=== PATIENT | female | born 1960 | race Caucasian/White ===

== ENCOUNTER 2019-06-11 20:42 | Emergency (ER) | payer BC, SELFPAY ==
[2019-06-11 20:58] VITALS: BP 127/81; PULSE 66; RESP 20; TEMP 36.6; O2SAT 99
--- NOTE | 2019-06-11 21:45 | PC.NURSE ---
PT STATES SHE IS LEAVING. STATES SHE PLANS TO COME BACK TOMORROW. DISCUSSED RISKS OF LEAVING BEFORE BEING SEEN. VERBALIZES UNDERSTANDING.
== END 2019-06-11 21:45 | disposition left against medical advice (07) ==
PROVIDERS: PCP Family Medicine
DX: M54.2 Cervicalgia (principal)
CPT/HCPCS: 99199

== ENCOUNTER 2019-10-06 16:37 | Outpatient (CLI) | payer OTHER, BC, SELFPAY ==
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
== END 2019-10-06 16:38 | disposition home or self-care (01) ==
PROVIDERS: PCP Family Medicine; Visit Provider Physician Assistant
DX: M54.2 Cervicalgia (principal); M25.512 Pain in left shoulder; V89.2XXA Person injured in unspecified motor-vehicle accident, traffic, initial encounter; M19.012 Primary osteoarthritis, left shoulder; M47.816 Spondylosis without myelopathy or radiculopathy, lumbar region; M47.815 Spondylosis without myelopathy or radiculopathy, thoracolumbar region; M47.812 Spondylosis without myelopathy or radiculopathy, cervical region
CPT/HCPCS: 72040; 72070; 72100; 73030

== ENCOUNTER 2019-11-08 17:00 | Outpatient (CLI) | payer OTHER, BC, SELFPAY ==
--- NOTE | ~2019-11-08 | XR_ITS ---
XR wrist LT 2V 11/08/2019 17:21 Indication: Left wrist pain. Lump in the wrist. Procedure: 2 views left wrist Comparison: No prior studies for comparison. Findings: Mild osteoarthritis of the first CMC joint. No fracture, subluxation or dislocation. No foc al soft tissue abnormality. No foreign bodies. Impression: 1: Mild osteoarthritis of the first CMC joint. Reviewed, dictated and finalized at location A. Impression: 1: Mild osteoarthritis of the first CMC joint.
== END 2019-11-08 17:01 | disposition home or self-care (01) ==
PROVIDERS: PCP Family Medicine; Visit Provider Physician Assistant
DX: M19.032 Primary osteoarthritis, left wrist (principal)
CPT/HCPCS: 73100

== ENCOUNTER 2020-05-16 19:23 | Emergency (ER) | payer BC, SELFPAY ==
--- NOTE | ~2020-05-16 | XR_ITS ---
EXAMINATION: XR foot LT min 3V DATE: 05/16/2020 19:51 INDICATION: Lateral left foot pain TECHNIQUE: Dorsoplantar, two oblique and lateral views of the left foot were obtained. COMPARISON: None. FINDINGS: Mild hallux valgus. Alignment is otherwise normal. No fracture. Mild reticular osteoarthritis at the first metatarsophalangeal and a few tarsal metatarsal and interphalangeal joints. Indolent appearing lytic lesion with thin sclerotic margins abutting the base of the first metatarsal likely degenerativ e subchondral cysts. Additional lytic lesion with thin sclerotic margins at the medial head of the fi rst metatarsal which could represent cystic change related to bunion or potentially an erosion in the setting of gout. Benign bone island at the head of the second metatarsal. Small Achilles and plantar calcaneal these joints. Additional small enthesophytes at the lateral malleolus. Mild soft tissue sw elling along the dorsal lateral aspect of the midfoot. IMPRESSION: 1. Incidental findings as detailed above. No acute osseous abnormality. Reviewed, dictated and finalized at location A. SITE ADMINISTRATOR
[2020-05-16 19:27] VITALS: BP 128/79; PULSE 66; RESP 18; TEMP 36.9; O2SAT 99
--- NOTE | 2020-05-16 20:38 | ED.GENADULT ---
HPI - General Adult General Chief complaint: Extremity Problem,Nontraumatic Stated complaint: left foot pain Time Seen by Provider: 05/16/20 19:49 Source: patient Mode of arrival: ambulatory Limitations: no limitations History of Present Illness HPI narrative: Patient presents with chief complaint of right dorsal foot pain that began this afternoon. Patient denies any inversion or eversion of her ankle or falls. Patient denies any other symptoms or injuries. Related Data Home Medications Medication Instructions Recorded Confirmed acetaminophen 650 mg 650 mg PO Q12H 10/06/19 10/07/19 tablet,extended release ergocalciferol (vitamin D2) 1,250 1,250 mcg PO WEEKLY 10/06/19 10/07/19 mcg (50,000 unit) capsule levothyroxine 100 mcg capsule 100 mcg PO DAILY 10/06/19 10/07/19 estradiol [EstroGel] 05/16/20 Allergies Allergy/AdvReac Type Severity Reaction Status Date / Time hydrocodone Allergy Severe Anaphylactic Verified 05/16/20 19:34 Shock oxycodone Allergy Severe Anaphylactic Verified 05/16/20 19:34 Shock Penicillins Allergy Severe Anaphylactic Verified 05/16/20 19:34 Shock Review of Systems Review of Systems: Narrative: CONSTITUTIONAL: Denies fever, chills, or sweats. EYES: Denies visual changes, redness, or discharge. ENT: Denies rhinorrhea, congestion, sore throat, or otalgia. CARDIOVASCULAR: Denies chest pain, palpitations, or edema. RESPIRATORY: Denies cough or dyspnea. GASTROINTESTINAL: Denies abdominal pain, nausea, vomiting, or diarrhea. GENITOURINARY: Denies dysuria or hematuria. SKIN: Denies rash or itching. MUSCULOSKELETAL: Reports right foot pain denies back pain, joint pain, or myalgia. NEUROLOGIC: Denies headache, numbness, dizziness, or weakness. PSYCHIATRIC: Denies anxiety or depression. [facility] Past Medical History Medical History (Updated 05/16/20 @ 20:46 by Mary Gonzales PA-C) Left wrist pain Family History Family History (Updated 12/30/13 @ 07:13 by DOCTOR UNKNOWN) Mother Family history of Alzheimer's disease Social History Social History Smoking status: Never smoker Alcohol intake: never Gender identity (if verbalized by the patient): Female Exam Narrative: Exam Narrative: GENERAL: Well-appearing, well-nourished, and in no acute distress. HEAD: Normocephalic, atraumatic. EYES: PERRLA and EOMI. NECK: Supple. No adenopathy or masses. CHEST: Clear to auscultation. No respiratory distress. No wheezes rales or rhonchi HEART: Regular rate and rhythm. EXTREMITIES: Diffuse tenderness over the dorsal aspect of the patient's right foot. Swelling erythema or ecchymosis not appreciated. Normal range of motion but patient reports pain with plantar and dorsiflexion. No edema. SKIN: Warm, dry, no rash. NEURO: No focal deficits. Alert and oriented x3. PSYCH: Normal mood and affect. Course Vital Signs Vital signs: Vital Signs Temperature 98.5 F 05/16/20 19:27 Pulse Rate 66 05/16/20 19:27 Respiratory Rate 18 05/16/20 19:27 Blood Pressure 128/79 05/16/20 19:27 Pulse Oximetry 99 05/16/20 19:27 Temperature 98.5 F 05/16/20 19:27 Pulse Rate 66 05/16/20 19:27 Respiratory Rate 18 05/16/20 19:27 Blood Pressure 128/79 05/16/20 19:27 Pulse Oximetry 99 05/16/20 19:27 Medical Decision Making MDM Narrative Medical decision making narrative: Patient's right foot x-ray was negative. Patient instructed that her symptoms seem to be tender or ligament involved. Patient will receive Jean-Paul wrap, instructions to RICE, and follow-up with her primary care provider. Vital Signs Vital Signs: Vital Signs Temperature 98.5 F 05/16/20 19:27 Pulse Rate 66 05/16/20 19:27 Respiratory Rate 18 05/16/20 19:27 Blood Pressure 128/79 05/16/20 19:27 Pulse Oximetry 99 05/16/20 19:27 Temperature 98.5 F 05/16/20 19:27 Pulse Rate 66 05/16/20 19:27 Respiratory Rate 18 05/16/20 19:27 Blood Pressure 128/79 05/16/20 19:27
== END 2020-05-16 21:11 | disposition home or self-care (01) ==
PROVIDERS: Emergency Provider Emergency Medicine; PCP Family Medicine
DX: S96.912A Strain of unspecified muscle and tendon at ankle and foot level, left foot, initial encounter (principal); X58.XXXA Exposure to other specified factors, initial encounter
CPT/HCPCS: 73630; 99283

== ENCOUNTER → 2020-07-14 09:36 | Outpatient (CLI) | payer BC, SELFPAY ==
[2020-07-14 19:00] LABS: SARS-CoV-2 RNA PCR Negative
== END ==
PROVIDERS: PCP Family Medicine; Visit Provider Nurse Practitioner Family
DX: Z20.822 Contact with and (suspected) exposure to COVID-19 (principal)
CPT/HCPCS: C9803; U0003; U0005

== ENCOUNTER 2021-07-23 06:25 | Emergency (ER) | payer BC, SELFPAY ==
[2021-07-23] VITALS (7 sets, daily range): BP systolic 105–128; BP diastolic 79–96; PULSE 50–71; RESP 13–23; TEMP 36.9; O2SAT 100
--- NOTE | ~2021-07-23 | CT_ITS ---
EXAMINATION: CTA chest PE protocol DATE: 07/23/2021 07:37 CDT INDICATION: Left lower extremity edema with chest pain TECHNIQUE: Computed tomographic angiography (CTA) of the chest was performed with 100 mL Omnipaque-35 0 intravenous contrast. The dose-length product was 706.33 mGy-cm. Maximum intensity projection 3D-re constructions of the aorta and other arteries were constructed by the technologist on a separate work station. COMPARISON: Chest x-ray dated 07/23/2021. FINDINGS: Study is technically adequate without evidence for pulmonary embolism. No evidence for aort ic aneurysm or dissection. Small hiatal hernia. No significant pleural or pericardial effusion. No th oracic lymphadenopathy. The upper abdomen is unremarkable. There are patchy groundglass opacities thr oughout both lungs, compatible with pneumonia. No endobronchial lesions. No pneumothorax. Mild thorac ic spondylosis. There is dextroscoliosis. IMPRESSION: 1. Patchy bilateral groundglass opacities throughout both lungs, compatible with pneumonia. Reviewed, dictated and finalized at location A. IMPRESSION: 1. Patchy bilateral groundglass opacities throughout both lungs, compatible wit h pneumonia.
--- NOTE | ~2021-07-23 | US_ITS ---
EXAMINATION:US venous doppler LE LT INDICATION:Leg swelling TECHNIQUE: Multiple grayscale, color flow and Doppler images of the right and left lower extremity de ep venous systems were obtained and reviewed. COMPARISON:No prior studies for comparison. FINDINGS: The common femoral, superficial femoral and popliteal veins demonstrate normal respiratory variation, augmentation and compressibility. Color flow is also seen within the posterior tibial, pe roneal, greater saphenous and profunda veins. IMPRESSION: 1: No lower extremity deep venous thrombosis. Reviewed, dictated and finalized at location A.
--- NOTE | ~2021-07-23 | XR_ITS ---
EXAMINATION: XR chest 2V 07/23/2021 07:09 INDICATION: Left lower extremity edema with chest pain. PROCEDURE: 2 view chest COMPARISON: 10/04/2018 FINDINGS: The lungs are clear. The cardiomediastinal silhouette is within normal limits. There are no pleural effusions. There is no pneumothorax suspected. IMPRESSION: 1: NO ACUTE CARDIOPULMONARY DISEASE. Reviewed, dictated and finalized at location A.
--- NOTE | 2021-07-23 06:45 | ECG_ITS ---
Measurements Intervals [place] Rate: 59 P: 24 KS: 169 QRS: -1 QRSD: 81 T: 25 QT: 451 QTc: 447 Interpretive Statements SINUS BRADYCARDIA OTHERWISE NORMAL ECG NO PREVIOUS ECG AVAILABLE FOR COMPARISON Electronically Signed On 07-23-2021 9:06:31 CDT by Timothy Cordoba M.D.
[2021-07-23 06:57] LABS: Basophils Absolute Auto 0.1 K/mm3 (0.0-0.1); Basophils Percent Auto 1.3 % (0.2-1.2); Eosinophils Absolute Auto 0.3 K/mm3 (0-0.3); Eosinophils Percent Auto 4.2 % (0-4.4); Hematocrit 43.3 % (37.0-47.0); Hemoglobin 14.8 g/dL (12.0-15.0); Immature Granulocyte Absolute 0.02 K/mm3 (0.00-0.031); Immature Granulocyte Percent A 0.3 % (0-0.5); Lymphocytes Percent Auto 30.6 % (18.3-44.2); Mean Corpuscular HGB Conc 34.2 g/dl (32-36); Mean Corpuscular Hemoglobin 32.9 pg (26-34); Mean Corpuscular Volume 96.2 fl (80-100); Mean Platelet Volume 9.5 fl (7.4-10.4); Monocytes Absolute Auto 0.4 K/mm3 (0.1-0.6); Monocytes Percent Auto 5.2 % (2.6-8.5); Neutrophils Percent Auto 58.4 % (45.5-73.1); Platelet Count Result 215 k/mm3 (150-375); Red Cell Distribution Width 12.5 % (11.5-14.5); White Blood Count 6.9 K/mm3 (4.5-10.0)
--- NOTE | 2021-07-23 07:01 | ED.LOWEXIN ---
HPI - Extremity Injury (Lower) General Chief Complaint: Extremity Injury, Lower Stated Complaint: left foot pain and swelling x2 days Time Seen by Provider: 07/23/21 06:53 Source: patient History of Present Illness HPI Narrative: Patient does with left lower extremity edema first she has had symptoms on and off for the past weeks this episode has been lasting for the past 3 days she feels like her leg is swelling up and can pop . She also reports a history of a DVT when she was on estrogen therapies. she denies any recent hospitalizations or surgeries. She does also reports some chest pain and shortness of breath over a similar timeframe. She denies any vomiting, diaphoresis. There are no clear aggravating or alleviating factors with her chest pain. It is a knot sensation no radiation. Related Data Home Medications Medication Instructions Recorded Confirmed acetaminophen 650 mg 650 mg PO Q12H 10/06/19 10/07/19 tablet,extended release ergocalciferol (vitamin D2) 1,250 1,250 mcg PO WEEKLY 10/06/19 10/07/19 mcg (50,000 unit) capsule levothyroxine 100 mcg capsule 100 mcg PO DAILY 10/06/19 10/07/19 estradiol [EstroGel] 05/16/20 Allergies Allergy/AdvReac Type Severity Reaction Status Date / Time hydrocodone Allergy Severe Anaphylactic Verified 07/23/21 06:41 Shock oxycodone Allergy Severe Anaphylactic Verified 07/23/21 06:41 Shock Penicillins Allergy Severe Anaphylactic Verified 07/23/21 06:41 Shock Review of Systems Review of Systems: CONSTITUTIONAL: Denies fever, chills, or sweats. EYES: Denies visual changes, redness, or discharge. ENT: Denies rhinorrhea, congestion, sore throat, or otalgia. CARDIOVASCULAR: Denies chest pain, palpitations, or edema. RESPIRATORY: Denies cough or dyspnea. GASTROINTESTINAL: Denies abdominal pain, nausea, vomiting, or diarrhea. GENITOURINARY: Denies dysuria or hematuria. SKIN: Denies rash or itching. MUSCULOSKELETAL: Denies back pain, joint pain, or myalgia. NEUROLOGIC: Denies headache, numbness, dizziness, or weakness. PSYCHIATRIC: Denies anxiety or depression. All systems reviewed & are unremarkable except as noted in HPI and below PMFSH Past Medical History Medical History Left wrist pain Family History Family History Mother Family history of Alzheimer's disease Social History Social History Smoking status: Never smoker Alcohol intake: never Gender identity (if verbalized by the patient): Female Exam Narrative: GENERAL: Well-appearing, well-nourished, and in no acute distress. HEAD: Normocephalic, atraumatic. EYES: PERRLA and EOMI. ENT: Nares clear, no rhinorrhea or epistaxis. Mucous membranes moist. NECK: Supple. No masses. No JVD CHEST: Clear to auscultation. No respiratory distress. No wheezes rales or rhonchi HEART: Regular rate and rhythm. No murmur heard. Normal peripheral pulses. ABDOMEN: Soft, nontender, nondistended, normal active bowel sounds. EXTREMITIES: Normal range of motion. 2+ pitting edema in the left lower extremity SKIN: Warm, dry, no rash. NEURO: No focal deficits. Alert and oriented x3. PSYCH: Normal mood and affect. Course Reevaluation(s) Reevaluation #1: Patient rest, the results and plan reviewed with patient. Patient comfortable outpatient plan Date: 07/23/21 Time: 08:03 Vital Signs Vital signs: Vital Signs Temperature 36.9 C 07/23/21 06:35 Pulse Rate 71 07/23/21 06:35 Respiratory Rate 20 07/23/21 06:35 Blood Pressure 128/79 07/23/21 06:35 Pulse Oximetry 100 07/23/21 06:35 Temperature 36.9 C 07/23/21 06:35 Pulse Rate 50 L 07/23/21 08:32 Respiratory Rate 18 07/23/21 08:32 Blood Pressure 105/79 07/23/21 08:32 Pulse Oximetry 100 07/23/21 08:32 MDM - Extremity Injury (Lower) MDM Narrative Medical decision
[2021-07-23 07:07] LABS: Alanine Aminotransferase 23 U/L (4-35); Albumin Level 3.8 g/dL (3.5-5.1); Alkaline Phosphatase 87 U/L (38-126); Anion Gap 4 mmol/L (8-16); Aspartate Amino Transferase 31 U/L (14-36); Blood Urea Nitrogen 9 mg/dL (7-17); Calcium 8.3 mg/dL (8.4-10.2); Carbon Dioxide 25 mmol/L (22-30); Chloride 110 mmol/L (98-107); Estimated CRCL calculation 73 ml/min; Estimated Glomerular Filt Rate 57; Glucose 108 mg/dL (65-110); Potassium 3.6 mmol/L (3.4-5.0); Sodium 139 mmol/L (137-145)
[2021-07-23 07:15] LABS: Prothrombin Time 12.9 Seconds (11.1-14.7)
[2021-07-23 07:16] LABS: Partial Thromboplastin Time 25.7 SECONDS (22.3-36.8)
[2021-07-23 07:21] LABS: Troponin I < 0.012 ng/mL (0.000-0.034)
--- NOTE | 2021-07-23 07:22 | PC.NURSE ---
Patient report received from DIMITRIS Carbone. All questions answered and care of patient assumed.
--- NOTE | 2021-07-23 07:24 | PC.NURSE ---
Patient off unit to Radiology for US.
--- NOTE | 2021-07-23 07:57 | PC.NURSE ---
Dr. Mendoza at bedside to assess pt.
[2021-07-23 09:16] LABS: SARS-CoV-2 RNA PCR Negative
== END 2021-07-23 08:42 | disposition home or self-care (01) ==
PROVIDERS: Emergency Medicine; Emergency Provider Emergency Medicine; PCP Family Medicine
DX: J18.9 Pneumonia, unspecified organism (principal); Z20.822 Contact with and (suspected) exposure to COVID-19; R00.1 Bradycardia, unspecified
CPT/HCPCS: 36415; 71046; 71275; 80053; 84484; 85025; 85610; 85730; 93005; 93971; 99284; C9803; Q9967; U0003; U0005

== ENCOUNTER 2021-08-29 13:19 | Outpatient (CLI) | payer BC, SELFPAY ==
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
[2021-08-29 13:54] LABS: Basophils Absolute Auto 0.1 K/mm3 (0.0-0.1); Basophils Percent Auto 0.9 % (0.2-1.2); Eosinophils Absolute Auto 0.8 K/mm3 (0-0.3); Eosinophils Percent Auto 9.5 % (0-4.4); Hematocrit 46.4 % (37.0-47.0); Hemoglobin 15.3 g/dL (12.0-15.0); Immature Granulocyte Absolute 0.02 K/mm3 (0.00-0.031); Immature Granulocyte Percent A 0.3 % (0-0.5); Lymphocytes Absolute Auto 2.25 K/mm3 (0.9-3.2); Lymphocytes Percent Auto 28.6 % (18.3-44.2); Mean Corpuscular Volume 100.2 fl (80-100); Mean Platelet Volume 9.4 fl (7.4-10.4); Monocytes Absolute Auto 0.5 K/mm3 (0.1-0.6); Monocytes Percent Auto 6.2 % (2.6-8.5); Neutrophils Absolute Auto 4.3 K/mm3 (1.3-6.7); Neutrophils Percent Auto 54.5 % (45.5-73.1); Platelet Count Result 228 k/mm3 (150-375); Red Blood Count 4.63 M/mm3 (4.2-5.4); White Blood Count 7.9 K/mm3 (4.5-10.0)
[2021-08-29 14:07] LABS: Alanine Aminotransferase 23 U/L (4-35); Albumin Level 3.7 g/dL (3.5-5.1); Alkaline Phosphatase 70 U/L (38-126); Anion Gap 4 mmol/L (8-16); Aspartate Amino Transferase 25 U/L (14-36); Bilirubin,Total 1.5 mg/dL (0.2-1.3); Blood Urea Nitrogen 11 mg/dL (7-17); Calcium 8.2 mg/dL (8.4-10.2); Carbon Dioxide 30 mmol/L (22-30); Chloride 104 mmol/L (98-107); Estimated Glomerular Filt Rate 51; Glucose 107 mg/dL (65-110); Potassium 3.7 mmol/L (3.4-5.0); Sodium 138 mmol/L (137-145)
[2021-08-29 14:15] LABS: NT Pro B Type Natriuretic Pept 125 pg/mL (5-100)
== END 2021-08-29 13:20 | disposition home or self-care (01) ==
LOC: ANHIMG 13:20
PROVIDERS: PCP Family Medicine; Visit Provider Family Medicine
DX: J18.9 Pneumonia, unspecified organism (principal); R60.9 Edema, unspecified; K44.9 Diaphragmatic hernia without obstruction or gangrene
CPT/HCPCS: 36415; 71260; 80053; 83880; 85025; Q9967

== ENCOUNTER 2021-09-06 13:50 | Outpatient (CLI) | payer BC, SELFPAY ==
[2021-09-06 14:34] LABS: Appearance Urine Clear (Clear); Bilirubin Urine Negative (Negative); Blood Urine Negative (Negative); Color Urine Yellow (Yellow); Glucose Urine UA Negative (Negative); Ketones Urine Negative (Negative); Leukocyte Esterase Ur Negative LEU/UL (NEGATIVE); Nitrate Urine Negative (Negative); Protein Urine Negative (Negative); Specific Grav Ur 1.015 (1.001-1.035); Urobilinogen Urine 0.2 mg/dL (<2.0); pH Urine 5.5 (5.0-9.0)
[2021-09-06 15:17] LABS: Add Urine Microscopic? NO
== END 2021-09-06 13:51 | disposition home or self-care (01) ==
LOC: ANHLAB 13:51
PROVIDERS: PCP Family Medicine; Visit Provider Family Medicine
DX: R80.9 Proteinuria, unspecified (principal)
CPT/HCPCS: 81003

== ENCOUNTER 2021-10-12 14:16 | Outpatient (CLI) | payer BC, SELFPAY ==
--- NOTE | 2021-10-15 11:38 | WPDSIXMINUTE ---
Six Minute Walk Procedure Procedure Performed Pulmonary Stress Test (6 min walk) Six Minute Walk Six Minute Walk: This is a 6 minute walk test. The test was performed and interpreted in accordance with the 2014 ERS/ATS task force guidelines. Findings: The patient's resting room air oxygen saturation measured by pulse oximetry was 93% and heart rate was 88 bpm. Patient ambulated for 427 meters and oxygen saturation remained 94 to 96%. Heart rate at the end of the study was 118 bpm. The patient did not qualify for supplemental oxygen at rest or with ambulation. There are no prior studies for comparison.
--- NOTE | 2021-10-15 11:40 | WPDPFTINT ---
PFT Procedure Performed PFT Procedure Performed Spirometry with Pre/Post Bronchodilator Plethysmography (Lung Vol) Diffusing Cap (DLCO) Flow Vol Loop PFT Interpretation This is a pulmonary function test with pre and post-bronchodilator spirometry, plethysmography and diffusing capacity. The test was performed and results interpreted in accordance with the 2019 and 2005 ATS/ERS Task Force guidelines respectively using the Global Lung Function Initiative-2012 reference equations. Patient demonstrated good effort and cooperation. Reproducibility criteria were met. The quality of the pre bronchodilator spirometry maneuver was Grade B and post bronchodilator spirometry maneuver was Grade C. Findings: Spirometry: The contour the inspiratory and expiratory flow tracing are normal. The pre bronchodilator FVC is 3.12 L, 84% predicted. The pre bronchodilator FEV1 is 2.39 L, 82% predicted. The pre bronchodilator FEV1: FVC ratio 77%. The post bronchodilator FVC is 3.12 L, representing no change. The post bronchodilator FEV1 is 2.53 L, representing a 6% increase. The post bronchodilator FEV1: FVC ratio was 81%. Plethysmography: The total lung capacity is 5.50 L, 97% predicted. Functional residual capacity is 3.56 L, 110% predicted. The residual volume is 2.37 L, 110% predicted. Diffusion capacity: The diffusing capacity unadjusted for hemoglobin and carboxyhemoglobin is 20.5, 87% predicted. The diffusing capacity adjusted for alveolar volume is 4.37, 102% predicted. Impression: The spirometry is normal without evidence of an obstructive abnormality. There is no significant improvement after inhaling a single dose of albuterol. The lung volumes are normal. The diffusing capacity is normal. There are no prior studies for comparison
== END 2021-10-12 14:17 | disposition home or self-care (01) ==
LOC: ANHPFT 14:19
PROVIDERS: PCP Family Medicine; Visit Provider Nurse Practitioner Family
DX: R06.02 Shortness of breath (principal)
CPT/HCPCS: 94060; 94618; 94726; 94729

== ENCOUNTER 2021-11-27 12:22 | Outpatient (CLI) | payer BC, SELFPAY ==
--- NOTE | 2021-11-27 18:06 | WPDMETH ---
Methacholine Procedure Perform Procedure Performed Methacholine Challenge Methacholine Challenge Methacholine Challenge: This is a methacholine challenge test. The test was performed and interpreted in accordance with the 2017 ERS technical standard, endorsed by the ATS, using the GLI 2012 reference equations. Testing was performed with increasing doses of nebulized methacholine following a quadrupling dosage protocol. The methacholine dose was delivered via the [employer] nebulizer using a 1-minutes tidal breathing protocol. The best post-methacholine FEV1 values were used to determine the change from the post diluent FEV1. The delivered dose of methacholine was used to calculate the provocative dose causing a 20% fall in FEV1 (PD 20). Of note the patient took Symbicort inhaler on 11/26 at 10:00 p.m (the night before the test). Findings: Baseline FEV1 2.52 L, 85% predicted. Post diluent FEV1 2.48 L Post 1.81 mcg methacholine FEV1 2.53 L, increased 2% Post 7.26 mcg methacholine FEV1 2.73 L, increased 10% Post 29.03 mcg methacholine FEV1 2.62 L, increased 6% Post 116.1 mcg methacholine FEV1 2.64 L, increased 6% Post 464.4 mcg methacholine FEV1 2.53 L, increased 2% Post albuterol nebulization FEV1 2.49 L Impression: The PD20 is > 400 mcg which is categorized as normal airway hyperresponsiveness. There are no prior methacholine challenge studies for comparison
== END 2021-11-27 12:23 | disposition home or self-care (01) ==
LOC: ANHPFT 12:23
PROVIDERS: PCP Family Medicine; Visit Provider Nurse Practitioner Family
DX: R06.02 Shortness of breath (principal)
CPT/HCPCS: 94070; J7674

== ENCOUNTER 2021-11-28 15:33 | Outpatient (CLI) | payer BC, SELFPAY ==
--- NOTE | ~2021-11-28 | XR_ITS ---
EXAMINATION: XR chest 2V DATE: 11/28/2021 16:00 INDICATION: Shortness of breath and cough TECHNIQUE: PA and lateral views of the chest are obtained. COMPARISON: 07/23/2021 FINDINGS: The lungs are free of acute opacities. No pleural effusion or pneumothorax. The cardiomedia stinal silhouette is normal. There is mild thoracic spondylosis. IMPRESSION: 1. No acute cardiopulmonary abnormality. Reviewed, dictated and finalized at location B.
== END 2021-11-28 15:34 | disposition home or self-care (01) ==
PROVIDERS: PCP Family Medicine; Visit Provider Physician Assistant
DX: R06.02 Shortness of breath (principal); R05.9 Cough, unspecified
CPT/HCPCS: 71046

== ENCOUNTER 2021-12-20 09:12 | Outpatient (CLI) | payer BC, SELFPAY ==
--- NOTE | ~2021-12-20 | NM_ITS ---
EXAMINATION: NM stress w perf spect multi DATE: 12/20/2021 11:51 INDICATION: Other forms of dyspnea. TECHNIQUE: Rest images were obtained following intravenous administration of 11.0 mCi Tc99m tetrofosm in (Myoview). The patient performed an exercise activity. At peak exercise, 33.0 mCi Tc99m tetrofosmi n (Myoview) was administered intravenously, and stress images were obtained in supine position. Addit ional post stress images were obtained in prone position. Data was reconstructed into short axis and horizontal and vertical long axis SPECT images. Gated SPECT images were also obtained. COMPARISON: None. FINDINGS: There is normal left ventricular perfusion without definite evidence of reversible or fixed perfusion abnormality to suggest ischemia or infarction. There is normal left ventricular chamber size, wall motion and ejection fraction. Left ventricular ejection fraction measures >70%. IMPRESSION: 1. Normal myocardial perfusion at rest and during stress. 2. Left ventricular ejection fraction measuring >70%. Reviewed, dictated and finalized at location A.
--- NOTE | 2021-12-20 09:30 | EST_ITS ---
Patient Info Name: Samantha Benz Age: 61 years : 1960 Gender: Female Ht: 68 in Wt: 242 lbs BSA: 2.34 m2 Exam Date: 12/20/2021 10:38 AM Exam Location: [facility] Stress Patient Status: Outpatient Admit Date: 12/20/2021 Staff Ordering Physician: Kai Rosario APRN Attending Provider: Kai Rosario APRN Exercise Technologist: Allie Mendez RDCS Exercise Physician: Byron Olson DO Exam Type: CA stress test treadmill w NM Study Info Indications R06.02 - Shortness of breath A pharmacological stress test was performed. Summary 1. 1. Negative Hilario exercise stress test for ischemic ST changes by ECG criteria. 2. 2. Reduced functional capacity, achieving 7 METs of workload. 3. 3. Hypertensive response to exercise. 4. 4. Appropriate HR response to exercise. 5. 5. Appropriate HR recovery at 1 minute post exercise. 6. 6. Nuclear scan to follow and will be reported separately. Please correlate with it. 7. 7. Patient informed of the above results. Protocol: [facility] Stress ECG Details Stage: REST Duration (min): 7 min : 3 sec Speed (mph): 0.0 Grade (%): 0 HR (bpm): 53 SBP (mmHg): 136 DBP (mmHg): 75 METS: --- Stage: REST Duration (min): 12 min : 13 sec Speed (mph): 0.0 Grade (%): 0 HR (bpm): 55 SBP (mmHg): 136 DBP (mmHg): 75 METS: --- Stage: STAGE 1 Duration (min): 1 min : 0 sec Speed (mph): 1.7 Grade (%): 10 HR (bpm): 102 SBP (mmHg): 136 DBP (mmHg): 75 METS: --- Stage: STAGE 1 Duration (min): 2 min : 0 sec Speed (mph): 1.7 Grade (%): 10 HR (bpm): 119 SBP (mmHg): 136 DBP (mmHg): 75 METS: --- Stage: STAGE 1 Duration (min): 3 min : 0 sec Speed (mph): 1.7 Grade (%): 10 HR (bpm): 121 SBP (mmHg): 194 DBP (mmHg): 78 METS: --- Stage: STAGE 2 Duration (min): 1 min : 0 sec Speed (mph): 2.5 Grade (%): 12 HR (bpm): 135 SBP (mmHg): 194 DBP (mmHg): 78 METS: --- Stage: STAGE 2 Duration (min): 2 min : 0 sec Speed (mph): 2.5 Grade (%): 12 HR (bpm): 145 SBP (mmHg): 210 DBP (mmHg): 70 METS: --- Stage: STAGE 2 Duration (min): 2 min : 20 sec Speed (mph): 2.5 Grade (%): 12 HR (bpm): 148 SBP (mmHg): 210 DBP (mmHg): 70 METS: --- Stage: RECOVERY Duration (min): 0 min : 39 sec Speed (mph): 0.0 Grade (%): 0 HR (bpm): 132 SBP (mmHg): 210 DBP (mmHg): 70 METS: --- Stage: RECOVERY Duration (min): 1 min : 39 sec Speed (mph): 0.0 Grade (%): 0 HR (bpm): 102 SBP (mmHg): 189 DBP (mmHg): 63 METS: --- Stage: RECOVERY Duration (min): 2 min : 39 sec Speed (mph): 0.0 Grade (%): 0 HR (bpm): 93 SBP (mmHg): 189 DBP (mmHg): 63 METS: --- Stage: RECOVERY Duration (min): 3 min : 39 sec Speed (mph): 0.0 Grade (%): 0 HR (bpm): 89 SBP (mmHg): 170 DBP (mmHg): 63 METS: --- -
== END 2021-12-20 09:13 | disposition home or self-care (01) ==
LOC: ANHCARD 09:14
PROVIDERS: PCP Family Medicine; Visit Provider Nurse Practitioner Family
DX: R06.09 Other forms of dyspnea (principal)
CPT/HCPCS: 78452; 93017; A9502

== ENCOUNTER 2022-04-06 09:01 | Emergency (ER) | payer BC, SELFPAY ==
--- NOTE | 2022-04-06 09:06 | ED.URI ---
HPI - URI/Sore Throat General Chief Complaint: Upper Respiratory Infection Stated Complaint: URI Time Seen by Provider: 04/06/22 09:59 Source: patient and RN notes reviewed Mode of arrival: ambulatory Limitations: no limitations History of Present Illness HPI Narrative: 61-year-old female presents to the concern for 3 day history of cough, sore throat, headache, fever, wheezing, nauseated, general weakness and malaise. 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 Reports she has been trying several things [id number] without relief. MD elicited complaint: cough and sore throat Related Data Home Medications Medication Instructions Recorded Confirmed levothyroxine 100 mcg capsule 100 mcg PO DAILY 10/06/19 04/06/22 azelastine 137 mcg (0.1 %) nasal 1 spray intranasal Q12H 04/06/22 04/06/22 spray aerosol ergocalciferol (vitamin D2) 1,250 1,250 mcg PO WEEKLY 04/06/22 04/06/22 mcg (50,000 unit) capsule Allergies Allergy/AdvReac Type Severity Reaction Status Date / Time hydrocodone Allergy Severe Anaphylactic Verified 04/06/22 09:56 Shock oxycodone Allergy Severe Anaphylactic Verified 04/06/22 09:56 Shock Penicillins Allergy Severe Anaphylactic Verified 04/06/22 09:56 Shock Review of Systems Review of Systems: CONSTITUTIONAL: Reports malaise, fever. EYES: Denies visual changes, redness, or discharge. ENT: Reports rhinorrhea, congestion, and sore throat. CARDIOVASCULAR: Denies chest pain, palpitations, or edema. RESPIRATORY: Reports cough. Denies dyspnea. GASTROINTESTINAL: Denies abdominal pain, nausea, vomiting, diarrhea SKIN: Denies rash or itching. MUSCULOSKELETAL: Reports myalgia. NEUROLOGIC: Reports headache. All systems reviewed & are unremarkable except as noted in HPI and below PMFSH Past Medical History Medical History Depression Left wrist pain Thoracic scoliosis Family History Family History Mother Family history of Alzheimer's disease Social History Social History Smoking status: Never smoker Second hand tobacco smoke exposure: Yes Alcohol intake: never Substance use: never Gender identity (if verbalized by the patient): Female Sexual Orientation (if Verbalized by the Patient): Straight or Heterosexual Spiritual care concerns: No Comments At time of signature, agree with nursing past medical, surgical, social and family history. There is no relevant family history pertinent to the presenting complaint Exam Narrative: GENERAL: Nontoxic-appearing and in no acute distress. HEAD: Normocephalic EYES: PERRLA, conjunctivae clear ENT: Nares clear, turbinates edematous and erythematous, clear discharge. Mucous membranes moist. TM pearly vasquez with dull light reflex bilaterally; no tragal tenderness. Oropharynx not erythematous without lesions. Tonsils not enlarged and without exudate, no drooling, no hoarseness, no trismus, uvula midline. NECK: Supple. No lymphadenopathy CHEST: Clear to auscultation, breath sounds equal. No wheezing, rhonchi, rales, or stridor. No respiratory distress, speaks in full sentences. HEART: Regular rate and rhythm. No murmur heard. SKIN: Warm, dry, no rash. NEURO: Alert and oriented x3. PSYCH: Normal mood and affect Course Course Emergency Course: Patient is aware of diagnosis, understands and agrees to treatment plan. Anticipatory guidance given. Patient agrees to follow-up as directed and is aware of reasons to seek care at the emergency department. Portions of this record may have been created with voice recognition software Level of Care: Express Care Visit Vital Signs Vital signs: Vital Signs Temperature 99.0 F 04/06/22 09:15 Pulse Rate 111 H 04/06/22 09:15 Respiratory Rate 16 04/06/22 09:15 Blood Pressure 107/77 04/06/22 09:15 Pulse Oximetry 98 04/06/22 09:15
[2022-04-06 09:15] VITALS: BP 107/77; PULSE 111; RESP 16; TEMP 37.2; O2SAT 98
== END 2022-04-06 10:25 | disposition home or self-care (01) ==
PROVIDERS: Emergency Provider Nurse Practitioner
DX: J10.1 Influenza due to other identified influenza virus with other respiratory manifestations (principal); Z20.822 Contact with and (suspected) exposure to COVID-19; M41.9 Scoliosis, unspecified
CPT/HCPCS: 87426; 87804; 99213; C9803; G0463

== ENCOUNTER 2022-05-07 08:20 | Emergency (ER) | payer OTHER, SELFPAY ==
--- NOTE | 2022-05-07 08:22 | ED.URI ---
HPI - URI/Sore Throat General Chief Complaint: Upper Respiratory Infection Stated Complaint: dizziness; drainage; sensitive to light Time Seen by Provider: 05/07/22 08:22 Source: patient Mode of arrival: ambulatory Limitations: no limitations History of Present Illness HPI Narrative: Vi is a 61-year-old female patient presenting to the clinic today with complaints of dizziness, nasal drainage /sinus drainage, headache, sore throat, cough, chills, body aches, and sensitivity to light for 3 days. She reports she had a bad migraine rating her pain 10/10 yesterday and she took her Imitrex and this improved. She rates her pain a 4/10 currently. MD elicited complaint: cough, sore throat, rhinorrhea, nasal congestion and sinus pain Related Data Home Medications Medication Instructions Recorded Confirmed levothyroxine 100 mcg capsule 100 mcg PO DAILY 10/06/19 04/06/22 azelastine 137 mcg (0.1 %) nasal 1 spray intranasal Q12H 04/06/22 04/06/22 spray aerosol ergocalciferol (vitamin D2) 1,250 1,250 mcg PO WEEKLY 04/06/22 04/06/22 mcg (50,000 unit) capsule Allergies Allergy/AdvReac Type Severity Reaction Status Date / Time hydrocodone Allergy Severe Anaphylactic Verified 05/07/22 08:29 Shock oxycodone Allergy Severe Anaphylactic Verified 05/07/22 08:29 Shock Penicillins Allergy Severe Anaphylactic Verified 05/07/22 08:29 Shock Review of Systems Review of Systems: Pertinent positives per HPI. Patient denies any rash, visual changes, shortness of breath, chest pain, palpitations, nausea, vomiting, diarrhea, constipation, abdominal pain, or any urinary issues. [facility] Past Medical History Medical History Depression Left wrist pain Thoracic scoliosis Family History Family History Mother Family history of Alzheimer's disease Social History Social History Smoking status: Never smoker Second hand tobacco smoke exposure: Yes Alcohol intake: never Substance use: never Gender identity (if verbalized by the patient): Female Sexual Orientation (if Verbalized by the Patient): Straight or Heterosexual Spiritual care concerns: No Comments At the time of my signature, I reviewed and agree with the nursing past medical, surgical, social, and family history. There is no relevant family history pertinent to the patient complaint. Exam Narrative: General: Well-developed, obese, in no apparent distress Head: Normocephalic, atraumatic Eyes: Pupils equally round and reactive to light bilaterally, EOM intact, sclera and conjunctive clear, no discharge, lids normal Ears: TMs intact , dull, congested, ear canals clear, no drainage, grossly hearing normal. Nose: Nares patent, clear nasal discharge, moderate inflammation, no sinus tenderness. Mouth: Oral pharynx without lesions or masses, good dentition, MMM. oropharynx red, postnasal drip Neck: Supple, trachea midline, no enlargement of anterior or posterior cervical nodes, no thyroid masses or goiter palpable. Cardio: Regular rate and rhythm, s1 and s2 normal, no murmur appreciated. Resp: Clear to auscultation bilaterally, no rhonchi, rales, wheezing or rubs Course Course Emergency Course: Portions of this record may have been created with voice recognition software. Level of Care: Express Care Visit Vital Signs Vital signs: Vital Signs Temperature 36.6 C 05/07/22 08:26 Pulse Rate 77 05/07/22 08:26 Respiratory Rate 16 05/07/22 08:26 Blood Pressure 138/85 05/07/22 08:26 Pulse Oximetry 100 05/07/22 08:26 Oxygen Delivery Room Air 05/07/22 08:26 Temperature 36.6 C 05/07/22 08:26 Pulse Rate 77 05/07/22 08:26 Respiratory Rate 16 05/07/22 08:26 Blood Pressure 138/85 05/07/22 08:26 Pulse Oximetry 100 05/07/22 08:26 Oxygen Del
[2022-05-07 08:26] VITALS: BP 138/85; PULSE 77; RESP 16; TEMP 36.6; O2SAT 100
== END 2022-05-07 09:07 | disposition home or self-care (01) ==
PROVIDERS: Emergency Provider Nurse Practitioner Family; PCP Family Medicine
DX: J06.9 Acute upper respiratory infection, unspecified (principal); B34.9 Viral infection, unspecified; J02.9 Acute pharyngitis, unspecified; H69.93 Unspecified Eustachian tube disorder, bilateral; Z20.822 Contact with and (suspected) exposure to COVID-19; M41.9 Scoliosis, unspecified
CPT/HCPCS: 87081; 87426; 87804; 87880; 99213; C9803; G0463

== ENCOUNTER 2022-06-19 13:43 | Emergency (ER) | payer OTHER, SELFPAY ==
[2022-06-19 13:53] VITALS: BP 138/78; PULSE 87; RESP 16; TEMP 37.9; O2SAT 98
--- NOTE | 2022-06-19 14:01 | ED.GENADULT ---
HPI - General Adult General Chief complaint: Dizziness Stated complaint: Dizziness Time Seen by Provider: 06/19/22 14:01 Source: patient Mode of arrival: ambulatory Limitations: no limitations Related Data Home Medications Medication Instructions Recorded Confirmed levothyroxine 100 mcg capsule 100 mcg PO DAILY 10/06/19 05/07/22 azelastine 137 mcg (0.1 %) nasal 1 spray intranasal Q12H 04/06/22 05/07/22 spray aerosol ergocalciferol (vitamin D2) 1,250 1,250 mcg PO WEEKLY 04/06/22 05/07/22 mcg (50,000 unit) capsule fluticasone fur. 200 mcg-umeclid inhalation 06/19/22 62.5 mcg-vilant 25 mcg inhalat.powder (Trelegy Ellipta) Allergies Allergy/AdvReac Type Severity Reaction Status Date / Time hydrocodone Allergy Severe Anaphylactic Verified 06/19/22 13:44 Shock oxycodone Allergy Severe Anaphylactic Verified 06/19/22 13:44 Shock Penicillins Allergy Severe Anaphylactic Verified 06/19/22 13:44 Shock PMFSH Past Medical History Medical History Depression Left wrist pain Thoracic scoliosis Family History Family History Mother Family history of Alzheimer's disease Social History Social History Smoking status: Never smoker Second hand tobacco smoke exposure: Yes Alcohol intake: never Substance use: never Living arrangements: with family Occupation/Education: occupation Gender identity (if verbalized by the patient): Female Sexual Orientation (if Verbalized by the Patient): Straight or Heterosexual Spiritual care concerns: No Course Vital Signs Vital signs: Vital Signs Temperature 37.9 C H 06/19/22 13:53 Pulse Rate 87 06/19/22 13:53 Respiratory Rate 16 06/19/22 13:53 Blood Pressure 138/78 06/19/22 13:53 Pulse Oximetry 98 06/19/22 13:53 Oxygen Delivery Room Air 06/19/22 13:53 Temperature 37.9 C H 06/19/22 13:53 Pulse Rate 87 06/19/22 13:53 Respiratory Rate 16 06/19/22 13:53 Blood Pressure 138/78 06/19/22 13:53 Pulse Oximetry 98 06/19/22 13:53 Oxygen Delivery Room Air 06/19/22 13:53 Medical Decision Making Vital Signs Vital Signs: Vital Signs Temperature 37.9 C H 06/19/22 13:53 Pulse Rate 87 06/19/22 13:53 Respiratory Rate 16 06/19/22 13:53 Blood Pressure 138/78 06/19/22 13:53 Pulse Oximetry 98 06/19/22 13:53 Oxygen Delivery Room Air 06/19/22 13:53 Temperature 37.9 C H 06/19/22 13:53 Pulse Rate 87 06/19/22 13:53 Respiratory Rate 16 06/19/22 13:53 Blood Pressure 138/78 06/19/22 13:53 Pulse Oximetry 98 06/19/22 13:53 Oxygen Delivery Room Air 06/19/22 13:53 Discharge Plan Discharge Prescriptions: No Action azelastine 137 mcg (0.1 %) Aerosol,[place] 1 spray INTRANASAL Q12H Rx Instructions: administer into each nostril ergocalciferol (vitamin D2) 1,250 mcg (50,000 unit) capsule 1,250 mcg PO WEEKLY prednisone 20 mg tablet 40 mg PO DAILY 5 Days Qty: 10 0RF Trelegy Ellipta 200-62.5-25 mcg blister with device INHALATION levothyroxine 100 mcg capsule 100 mcg PO DAILY furosemide 40 mg tablet 40 mg PO QAM Qty: 90 2RF albuterol sulfate [ProAir HFA] 90 mcg/actuation HFA aerosol inhaler 2 puff inhalation Q4H PRN (Reason: shortness of breath or wheezing) Qty: 8.5 2RF meloxicam 7.5 mg tablet 7.5 mg PO DAILY Qty: 30 2RF sumatriptan succinate 100 mg tablet See Rx Instructions PO .COMPLEX Qty: 10 0RF Rx Instructions: take 1 tab at onset of headache; if no relief, may repeat 1 tab after at least 2 hrs; max = 2 tabs/24 hrs PO nystatin 100,000 unit/mL suspension 5 ml PO QID Qty: 480 0RF Rx Instructions: swish and swallow Follow-up/Referrals: Ankur Root MD [Primary Care Provider] -
--- NOTE | 2022-06-19 14:22 | ED.URI ---
HPI - URI/Sore Throat General Chief Complaint: Dizziness Stated Complaint: Dizziness Time Seen by Provider: 06/19/22 14:01 Source: patient Mode of arrival: ambulatory Limitations: no limitations History of Present Illness HPI Narrative: 61-year-old female presents with complaint of nasal congestion, sore throat, cough, headache, fatigue, body aches, chills, fever starting this morning. Reports some intermittent dizziness. States she was coughing and aggravated her asthma this morning. Had to use her albuterol inhaler. Reports that her gave her a DayQuil prior to coming here. States she was riding in the car last night with her friend that was smoking and since then she has felt bad, congested. Denies nausea vomiting diarrhea. All systems reviewed and negative except as noted above. Related Data Home Medications Medication Instructions Recorded Confirmed levothyroxine 100 mcg capsule 100 mcg PO DAILY 10/06/19 05/07/22 azelastine 137 mcg (0.1 %) nasal 1 spray intranasal Q12H 04/06/22 05/07/22 spray aerosol ergocalciferol (vitamin D2) 1,250 1,250 mcg PO WEEKLY 04/06/22 05/07/22 mcg (50,000 unit) capsule fluticasone fur. 200 mcg-umeclid inhalation 06/19/22 62.5 mcg-vilant 25 mcg inhalat.powder (Trelegy Ellipta) Allergies Allergy/AdvReac Type Severity Reaction Status Date / Time hydrocodone Allergy Severe Anaphylactic Verified 06/19/22 13:44 Shock oxycodone Allergy Severe Anaphylactic Verified 06/19/22 13:44 Shock Penicillins Allergy Severe Anaphylactic Verified 06/19/22 13:44 Shock Review of Systems Review of Systems: CONSTITUTIONAL: Reports fever, chills, or sweats. EYES: Denies visual changes, redness, or discharge. ENT: reports rhinorrhea, congestion, sore throat, or otalgia. CARDIOVASCULAR: Denies chest pain, palpitations, or edema. RESPIRATORY: reports cough. Denies dyspnea. GASTROINTESTINAL: Denies abdominal pain, nausea, vomiting, or diarrhea. GENITOURINARY: Denies dysuria or hematuria. SKIN: Denies rash or itching. MUSCULOSKELETAL: Denies back pain, joint pain, or myalgia. NEUROLOGIC: Denies headache, numbness, or weakness. PSYCHIATRIC: Denies anxiety or depression. All other systems reviewed are negative, except as documented in HPI. [facility] Past Medical History Medical History Depression Left wrist pain Thoracic scoliosis Family History Family History Mother Family history of Alzheimer's disease Social History Social History Smoking status: Never smoker Second hand tobacco smoke exposure: Yes Alcohol intake: never Substance use: never Living arrangements: with family Occupation/Education: occupation Gender identity (if verbalized by the patient): Female Sexual Orientation (if Verbalized by the Patient): Straight or Heterosexual Spiritual care concerns: No Comments At time of signature, agree with nursing past medical, surgical, social and family history. There is no relevant family history pertinent to the presenting complaint. Exam Narrative: GENERAL: This is a well-nourished, well-developed patient, in no apparent distress. HEAD: normocephalic, atraumatic. EYES: PERRL. Sclera clear/white. Vision is grossly intact. EARS: External ears normal, auditory canals clear and without drainage, fluid bilateral TMs without erythema. NOSE: External nose normal with Clear nasal drainage with erythema to nares. THROAT: Mucous membranes moist, posterior pharynx clear. NECK: Neck supple, non-tender without lymphadenopathy, masses or thyromegaly. CARDIOVASCULAR: Regular rate and rhythm without murmurs, gallops, or rubs. RESPIRATORY: Clear to auscultation. Breath sounds equal bilaterally. No wheezes, rales, or rhonchi. SKIN: warm, Dry, intact with no suspicious l
== END 2022-06-19 14:14 | disposition home or self-care (01) ==
PROVIDERS: Emergency Provider Nurse Practitioner Family; PCP Family Medicine
DX: B34.9 Viral infection, unspecified (principal)
CPT/HCPCS: 87804; 99213; G0463

== ENCOUNTER 2022-09-20 20:07 | Emergency (ER) | payer OTHER, SELFPAY ==
[2022-09-20 20:09] VITALS: BP 145/83; PULSE 71; RESP 18; TEMP 35.8; O2SAT 99
--- NOTE | 2022-09-20 20:49 | ED.DENTAL ---
HPI - Dental/Oral General Chief complaint: Dental/Oral Stated complaint: oral pain Time Seen by Provider: 09/20/22 20:40 Source: patient and family Mode of arrival: ambulatory Limitations: no limitations History of Present Illness HPI Narrative: 61-year-old with a history of hypertension ,asthma ,hypothyroidism here with complaints of having thrush and dental pain for past few weeks. Patient states that she has finished 2 rounds of nystatin which is not helping her. She also complains of bilateral ear puffiness. MD Complaint: tooth pain Onset (ago): week(s) (2) Duration: constant Severity: moderate Associated symptoms: gum swelling Treatment prior to arrival: other (Oral nystatin) Related Data Home Medications Medication Instructions Recorded Confirmed levothyroxine 100 mcg capsule 100 mcg PO DAILY 10/06/19 08/26/22 azelastine 137 mcg (0.1 %) nasal 1 spray intranasal Q12H 04/06/22 08/26/22 spray aerosol ergocalciferol (vitamin D2) 1,250 1,250 mcg PO WEEKLY 04/06/22 08/26/22 mcg (50,000 unit) capsule Allergies Allergy/AdvReac Type Severity Reaction Status Date / Time hydrocodone Allergy Severe Anaphylactic Verified 08/26/22 14:04 Shock oxycodone Allergy Severe Anaphylactic Verified 08/26/22 14:04 Shock Penicillins Allergy Severe Anaphylactic Verified 08/26/22 14:04 Shock Review of Systems Review of Systems: All systems reviewed & are unremarkable except as noted in HPI and below Constitutional: Constitutional: Reports no additional constitutional complaints Eyes: Eyes: Reports no additional eye complaints ENT: Reports as per HPI Cardiovascular: Cardiovascular: Reports no additional cardiovascular complaints Respiratory: Respiratory: Reports no additional respiratory complaints Gastrointestinal: Gastrointestinal: Reports no additional gastrointestinal complaints Musculoskeletal: Musculoskeletal: Reports no additional musculoskeletal complaints [facility] Past Medical History Medical History Asthma Depression Family history of Alzheimer's disease Left wrist pain Thoracic scoliosis Family History Family History Mother Family history of Alzheimer's disease Social History Social History Smoking status: Never smoker Second hand tobacco smoke exposure: Yes Alcohol intake: never Substance use: never Living arrangements: with family Occupation/Education: occupation Gender identity (if verbalized by the patient): Female Sexual Orientation (if Verbalized by the Patient): Straight or Heterosexual Spiritual care concerns: No Exam Narrative: GENERAL: Well-appearing, well-nourished, and in no acute distress. HEAD: Normocephalic, atraumatic. EYES: PERRLA and EOMI. ENT: Nares clear, no rhinorrhea or epistaxis. Mucous membranes moist. oral thrush, both the ears are normal no obvious dental caries or gingival swelling NECK: Supple. CHEST: Clear to auscultation. No respiratory distress. HEART: Regular rate and rhythm. No murmur heard. Normal peripheral pulses. ABDOMEN: Soft, nontender, nondistended, normal active bowel sounds. EXTREMITIES: Normal range of motion. No edema. SKIN: Warm, dry, no rash. NEURO: No focal deficits. Alert and oriented x3. PSYCH: Normal mood and affect. Course Vital Signs Vital signs: Vital Signs Temperature 35.8 C L 09/20/22 20:09 Pulse Rate 71 09/20/22 20:09 Respiratory Rate 18 09/20/22 20:09 Blood Pressure 145/83 H 09/20/22 20:09 Pulse Oximetry 99 09/20/22 20:09 Oxygen Delivery Room Air 09/20/22 20:09 Temperature 35.8 C L 09/20/22 20:09 Pulse Rate 71 09/20/22 20:09 Respiratory Rate 18 09/20/22 20:09 Blood Pressure 145/83 H 09/20/22 20:09 Pulse Oximetry 99 09/20/22 20:09 Oxygen Delivery Room Air 09/20/22 20:09 Discharge Plan
[2022-09-20] MEDS: FLUCONAZOLE 100 MG TABLET 200 MG PO (21:37)
== END 2022-09-20 21:40 | disposition home or self-care (01) ==
PROVIDERS: Emergency Provider Family Medicine; PCP Family Medicine
DX: B37.0 Candidal stomatitis (principal); K08.89 Other specified disorders of teeth and supporting structures; I10 Essential (primary) hypertension; J45.909 Unspecified asthma, uncomplicated; E03.9 Hypothyroidism, unspecified
CPT/HCPCS: 99283; A9270

== ENCOUNTER 2022-10-29 08:12 | Outpatient (CLI) | payer OTHER, SELFPAY ==
--- NOTE | 2022-11-18 17:47 | WPDHOMESLEEP ---
Sleep Study - Home Unattended Date of Study: 10/29/22 Ordering Provider: Kai Rosario APRN Interpreting Provider: Antonia Moreno, DO Home Sleep Study Type: Watch PAT Height: 1.73 m Weight: 111.13 kg Body Mass Index: 37.2 Neck Circumference (inches): 14.75 [place]: 13 Reason for Sleep Study Snoring, daytime hypersomnia Sleep History The patient is a 62-year-old female that had a sleep study ordered by the pulmonary group for evaluation of sleep apnea. The patient rarely awakens from sleep short of breath. She constantly awakens at night with heartburn, belching or cough. She constantly snores and is frequently loud enough that others complain. She occasionally has trouble sleeping when she has a cold. She rarely wakes up gasping for air throughout the night. She frequently has breathing problems at night observed by herself or others. She frequently sweats excessively at night. She frequently falls asleep during the day. She rarely falls asleep while driving. She occasionally experiences loss of muscle tone when extremely emotional. She occasionally has trouble at school or work due to sleepiness. She occasionally feels unable to move while waking up or falling asleep. She denies hypnagogic / hypnopompic hallucinations. She denies feeling afraid of going to sleep. She rarely has nightmares. She occasionally remembers her dreams. She frequently has thoughts racing through her mind. She frequently feels sad, depressed and anxious. She constantly has muscular tension. She occasionally notices parts of her body jerk. She denies kicking during the night. She denies having crawling and aching feelings in her legs but rarely has leg pain during the night. She occasionally grinds her teeth during sleep but denies awakening with pain. She constantly is bothered by pain during the day and frequently awakened by pain during night. She constantly wakes up feeling stiff morning. She constantly wakes up with sore or achy muscles. She constantly wakes up with pain in the neck, spine or other joints. She goes to bed between 7:30-8 p.m. on both weekdays and weekends. She is able to fall asleep immediately. She wakes up 1-2 times throughout the night to urinate and is able to fall back asleep within 5 minutes. She wakes up at 2:00 a.m. on weekdays and at 5:00 a.m. on the weekends. She typically gets 6-7 hours of sleep per night. She will stay in bed for 1-2 hours after waking up in morning. She currently lives with her . She will drink caffeinated soda within a few hours of bedtime. She denies engaging in physical exercise before bedtime. She will read and watch television before falling asleep. She will take naps in the afternoon and they are occasionally refreshing. She consumes 3 caffeinated beverages per day. She denies tobacco, and recreational drug use PMFSH Past Medical History Medical History Asthma Depression Family history of Alzheimer's disease Left wrist pain Thoracic scoliosis Family History Family History Mother Family history of Alzheimer's disease Social History Social History Smoking status: Never smoker Second hand tobacco smoke exposure: Yes Alcohol intake: never Substance use: never Living arrangements: with family Occupation/Education: occupation Gender identity (if verbalized by the patient): Female Sexual Orientation (if Verbalized by the Patient): Straight or Heterosexual Spiritual care concerns: No Medications Home Medications Medication Instructions Recorded Confirmed Type levothyroxine 100 mcg capsule 100 mcg PO DAILY 10/06/19 10/07/22 History albuterol sulfate 90 mcg/actuation 2 puff inhalation Q4H PRN 03/26/22 10/07/22 Rx aerosol inhaler (ProAir HFA) shortness of breath or wheezin
[2022-11-18 18:21] VITALS: BMI 37.2
== END 2022-10-30 10:23 | disposition home or self-care (01) ==
PROVIDERS: PCP Family Medicine; Visit Provider Nurse Practitioner Family
DX: G47.30 Sleep apnea, unspecified (principal); R06.83 Snoring; R53.83 Other fatigue
CPT/HCPCS: 95800

== ENCOUNTER 2023-06-26 00:59 | Day surgery (SDC) | payer OTHER, SELFPAY ==
[2023-06-05 12:36] VITALS: BMI 37.5
--- NOTE | 2023-06-24 09:17 | SUR.PREOP ---
Patient called regarding upcoming procedure. Reviewed preop instructions, appointment times, and procedure prep.
--- NOTE | 2023-06-25 17:54 | PM.HPGS ---
History of Present Illness History of Present Illness Consent: Risks, benefits, and alternatives have been discussed and questions answered. Patient agrees to proceed with procedure. Chief complaint: neoplasm screening,epigastric pain Narrative: Samantha Benz is a 62 year old female With problems with a great deal of abdominal distension. She states that she is distended all along. She held her hand about 14 in above her abdomen to showing how large her abdomen gets, particularly when standing up. She does not burp excessively. She does use a CPAP machine but believes that she has had this problem even prior to that she also recall that when she had uterine fibroids her abdomen became huge to a point that was stretching her scan and was painful her abdomen looked as though she was 9 months . She has not lost weight in fact has gained some in the past year. She added that she has had a very poor appetite Also she had 2 polyps removed about 5 years ago. Review of Systems Review of Systems: All systems reviewed & are unremarkable except as noted in HPI and below PMFSH Past Medical History Medical History Asthma Depression Family history of Alzheimer's disease Left wrist pain Thoracic scoliosis Family History Family History Mother Family history of Alzheimer's disease Social History Social History Smoking status: Never smoker Second hand tobacco smoke exposure: Yes Alcohol intake: never Substance use: never Living arrangements: with family Occupation/Education: occupation Gender identity (if verbalized by the patient): Female Sexual Orientation (if Verbalized by the Patient): Straight or Heterosexual Spiritual care concerns: No Meds Home Medications and Allergies Home Medications Medication Instructions Recorded Confirmed Type budesonide-formoterol HFA 160 2 puff inhalation Q12H #10.2 grams 10/07/22 06/05/23 Rx mcg-4.5 mcg/actuation aerosol inhaler (Symbicort) sumatriptan succinate 100 mg tablet See Rx Instructions PO .COMPLEX 03/07/23 06/05/23 History PRN Migraine Headache omeprazole 20 mg capsule,delayed 20 mg PO DAILY #30 caps 05/07/23 06/26/23 Rx release albuterol sulfate 90 mcg/actuation 2 puff inhalation Q4H PRN 05/30/23 06/05/23 Rx aerosol inhaler (ProAir HFA) shortness of breath or wheezing #8.5 grams ergocalciferol (vitamin D2) 1,250 1,250 mcg PO WEEKLY #12 caps 06/03/23 06/05/23 Rx mcg (50,000 unit) capsule meloxicam 7.5 mg tablet 7.5 mg PO DAILY #90 tabs 06/03/23 06/05/23 Rx montelukast 10 mg tablet 10 mg PO QHS #90 tabs 06/03/23 06/05/23 Rx levothyroxine 150 mcg tablet 150 mcg PO DAILY #30 tabs 06/20/23 06/26/23 Rx Allergies Allergy/AdvReac Type Severity Reaction Status Date / Time hydrocodone Allergy Severe Anaphylactic Verified 06/26/23 09:51 Shock oxycodone Allergy Severe Anaphylactic Verified 06/26/23 09:51 Shock Penicillins Allergy Severe Anaphylactic Verified 06/26/23 09:51 Shock Exam Const: General: alert Orientation/consciousness: patient oriented x3 Resp: Auscultation: clear to auscultation bilaterally Cardio: Rhythm: regular rhythm GI: GI Palp: Yes Soft to palpation and No Tenderness to palpation present (GI) Neuro: General: patient oriented x3 Assessment and Plan Assessment and plan (1) Epigastric pain: Code(s): R10.13 - Epigastric pain Status: Acute Assessment and Plan: EGD with possible biopsy or dilatation or cautery. (2) Colon cancer screening: Code(s): Z12.11 - Encounter for screening for malignant neoplasm of colon Status: Acute Assessment and Plan: Colonoscopy with possible biopsy or polypectomy or cautery or injection of substances.
[2023-06-26 09:54] VITALS: BP 127/73; PULSE 59; RESP 18; TEMP 36.6; O2SAT 100
[2023-06-26] MEDS: LACTATED RINGERS 1,000 ML 150 ML IV CONT (10:03)
--- NOTE | 2023-06-26 10:21 | WPDANESEPPF ---
Anes - Initial Pre Proc Eval Procedure: Operation Date: 06/26/23 11:00 Proposed Procedures p Esophagogastroduodenoscopy & Colonoscopy - Rex Hernandez MD Date/Time: 06/26/23 10:21 Surgeon: Rex Hernandez MD Pre Op Diagnosis: neoplasm screening,epigastric pain Patient Data Age: 62 Gender: F Height: 1.73 m Weight: 113.2 kg Last Vital Signs Temp 97.9 F 06/26/23 09:54 Pulse 59 L 06/26/23 09:54 Resp 18 06/26/23 09:54 BP 127/73 06/26/23 09:54 Pulse Ox 100 06/26/23 09:54 O2 Del Method Room Air 06/26/23 09:54 Allergies Allergy/AdvReac Type Severity Reaction Status Date / Time hydrocodone Allergy Severe Anaphylactic Verified 06/26/23 09:51 Shock oxycodone Allergy Severe Anaphylactic Verified 06/26/23 09:51 Shock Penicillins Allergy Severe Anaphylactic Verified 06/26/23 09:51 Shock Home Medications Medication Instructions Recorded Confirmed Type budesonide-formoterol HFA 160 2 puff inhalation Q12H #10.2 grams 10/07/22 06/05/23 Rx mcg-4.5 mcg/actuation aerosol inhaler (Symbicort) sumatriptan succinate 100 mg tablet See Rx Instructions PO .COMPLEX 03/07/23 06/05/23 History PRN Migraine Headache omeprazole 20 mg capsule,delayed 20 mg PO DAILY #30 caps 05/07/23 06/26/23 Rx release albuterol sulfate 90 mcg/actuation 2 puff inhalation Q4H PRN 05/30/23 06/05/23 Rx aerosol inhaler (ProAir HFA) shortness of breath or wheezing #8.5 grams ergocalciferol (vitamin D2) 1,250 1,250 mcg PO WEEKLY #12 caps 06/03/23 06/05/23 Rx mcg (50,000 unit) capsule meloxicam 7.5 mg tablet 7.5 mg PO DAILY #90 tabs 06/03/23 06/05/23 Rx montelukast 10 mg tablet 10 mg PO QHS #90 tabs 06/03/23 06/05/23 Rx levothyroxine 150 mcg tablet 150 mcg PO DAILY #30 tabs 06/20/23 06/26/23 Rx Patient hx anesthesia problems: none Family hx anesthesia problems: none Results Review: All pre-operative results and documents have been reviewed as part of the pre-operative evaluation. [facility] Past Medical History Medical History Asthma Depression Family history of Alzheimer's disease Left wrist pain Thoracic scoliosis Family History Family History Mother Family history of Alzheimer's disease Social History Social History Smoking status: Never smoker Second hand tobacco smoke exposure: Yes Alcohol intake: never Substance use: never Living arrangements: with family Occupation/Education: occupation Gender identity (if verbalized by the patient): Female Sexual Orientation (if Verbalized by the Patient): Straight or Heterosexual Spiritual care concerns: No Anes - Eval Final PreProcedure Day of Procedure 06/26/23 10:21 Patient weight: obese Heart: regular rate and rhythm Lungs: clear to auscultation Airway: Mallampati scale class II Neurological: alert and oriented Last oral intake: >/= 8 hours ASA classification: III Emergent: no Anesthetic plan: proceed Anesthesia type and monitoring: general GIVS and standard monitoring Results Review: All pre-operative results and documents have been reviewed as part of the pre-operative evaluation. Informed Consent: The patient's anesthetic plan and its attendant risks and benefits were discussed with the patient/family/POA. Questions were solicited and answers provided to the satisfaction of the patient/family/POA.
[2023-06-26] MEDS: BENZOCAINE (*SP) 60 ML SPRAY CAN (HURRICAINE) 1 SPRAY MUCOUS MEM (10:59)
--- NOTE | 2023-06-26 11:12 | SUR.OPER ---
EGD END 1107 COLONOSCOPY START 1112
[2023-06-26 11:23] VITALS: BP 100/55; PULSE 57; RESP 20; O2SAT 96
[2023-06-26 11:33] VITALS: BP 105/61; PULSE 52; RESP 18; O2SAT 97
[2023-06-26 11:43] VITALS: BP 121/74; PULSE 56; RESP 24; O2SAT 99
== END 2023-06-26 12:20 | disposition home or self-care (01) ==
PROVIDERS: PCP Family Medicine; Visit Provider Internal Medicine Gastroenterology
PROC: 0DJ08ZZ Inspection of Upper Intestinal Tract, Via Natural or Artificial Opening Endoscopic (ICD-10-PCS; CPT 43235; principal; 2023-06-26 11:00)
DX: Z12.11 Encounter for screening for malignant neoplasm of colon (principal); R10.13 Epigastric pain; Z86.010 Personal history of colon polyps; K31.89 Other diseases of stomach and duodenum; K21.9 Gastro-esophageal reflux disease without esophagitis; J45.909 Unspecified asthma, uncomplicated
CPT/HCPCS: 45378; 43239; 88305; J7120

== ENCOUNTER 2023-09-26 15:45 | Emergency (ER) | payer OTHER, SELFPAY ==
[2023-09-26 15:48] VITALS: BP 142/86; PULSE 61; RESP 16; TEMP 36.4; O2SAT 100
--- NOTE | 2023-09-26 16:09 | ED.DENTAL ---
HPI - Dental/Oral General Chief complaint: Dental/Oral Stated complaint: Mouth,Gum Pain Time Seen by Provider: 09/26/23 15:50 Source: patient Mode of arrival: ambulatory Limitations: no limitations History of Present Illness HPI Narrative: Samantha is a 62-year-old female patient presenting to clinic today with complaints of right gel pain. She reports she feels as though there may be a infection in her jaw. Has had a dental implant placed and the right lower jaw recently and she has been having a lot of problems with it. She has not been able follow-up with her dentist. States that feels as though she is tasting infection. Has felt feverish with no known fever Related Data Home Medications Medication Instructions Recorded Confirmed sumatriptan succinate 100 mg tablet See Rx Instructions PO .COMPLEX 03/07/23 09/26/23 PRN Migraine Headache Allergies Allergy/AdvReac Type Severity Reaction Status Date / Time hydrocodone Allergy Severe Anaphylactic Verified 08/25/23 08:24 Shock oxycodone Allergy Severe Anaphylactic Verified 08/25/23 08:24 Shock Penicillins Allergy Severe Anaphylactic Verified 08/25/23 08:24 Shock Review of Systems Review of Systems: Pertinent positives per HPI. Patient denies any rash, headache, visual changes, dizziness, cough, runny nose, sore throat, shortness of breath, chest pain, palpitations, nausea, vomiting, diarrhea, constipation, abdominal pain, or any urinary issues. [facility] Past Medical History Medical History Asthma Body mass index (BMI) of 38.0 to 38.9 in adult Depression Family history of Alzheimer's disease Left wrist pain Nonerosive esophageal reflux disease Thoracic scoliosis Family History Family History Mother Family history of Alzheimer's disease Social History Social History Smoking status: Never smoker Second hand tobacco smoke exposure: Yes Alcohol intake: never Substance use: never Living arrangements: with family Occupation/Education: occupation Gender identity (if verbalized by the patient): Female Sexual Orientation (if Verbalized by the Patient): Straight or Heterosexual Spiritual care concerns: No Comments At the time of my signature, I reviewed and agree with the nursing past medical, surgical, social, and family history. There is no relevant family history pertinent to the patient complaint. Exam Narrative: General: Well-developed, well nourished, in no apparent distress Head: Normocephalic, atraumatic Eyes: Pupils equally round and reactive to light bilaterally, EOM intact, sclera and conjunctive clear, no discharge, lids normal Ears: TMs intact and clear, ear canals clear, no drainage, grossly hearing normal. Nose: Nares patent, no discharge, no inflammation, no sinus tenderness. Mouth: Oropharynx without lesions or masses, poor dentition, MMM. Swelling of the gum around the dental implant to the right lower jaw with tenderness to palpation, no obvious drainage or palpable fluctuant. Neck: Supple, trachea midline, no enlargement of anterior or posterior cervical nodes, no thyroid masses or goiter palpable. Cardio: Regular rate and rhythm, s1 and s2 normal, no murmur appreciated. Resp: Clear to auscultation bilaterally anteriorly and posteriorly, no rhonchi, rales, wheezing or rubs Course Course Emergency Course: Portions of this record may have been created with voice recognition software. Level of Care: Express Care Visit Vital Signs Vital signs: Vital Signs Temperature 36.4 C L 09/26/23 15:48 Pulse Rate 61 09/26/23 15:48 Respiratory Rate 16 09/26/23 15:48 Blood Pressure 142/86 H 09/26/23 15:48 Pulse Oximetry 100 09/26/23 15:48 Oxygen Delivery Room Air 09/26/23 15:48 Temperature 36.4 C L 09/26/23 15:
== END 2023-09-26 16:15 | disposition home or self-care (01) ==
PROVIDERS: Emergency Provider Nurse Practitioner Family; PCP Family Medicine
DX: K04.7 Periapical abscess without sinus (principal); J45.909 Unspecified asthma, uncomplicated
CPT/HCPCS: 99213; G0463

== ENCOUNTER 2024-12-08 22:40 | Emergency (ER) | payer OTHER, SELFPAY ==
--- NOTE | ~2024-12-08 | US_ITS ---
EXAMINATION: US venous doppler [facility] DATE: 12/08/2024 23:00 INDICATION: Left lower extremity pain TECHNIQUE: Grayscale ultrasound images without and with compression and Doppler ultrasound images of the left lower extremity veins were obtained. COMPARISON: 07/23/2021 FINDINGS: The visualized portions of left common femoral vein, profunda (deep) femoral vein, femoral vein, popl iteal vein, peroneal veins, posterior tibial veins, and greater saphenous vein outflow are patent. IMPRESSION: 1. No deep venous thrombosis. Reviewed, dictated and finalized at location A.
--- NOTE | ~2024-12-08 | XR_ITS ---
HISTORY: leg pain, POSTERIOR, NKI COMPARISON: None TECHNIQUE: 2 views of the left tibia and fibula were performed FINDINGS: No acute or subacute fracture. A left total knee arthroplasty is present. Soft tissues are unremarkable without radiopaque foreign body or significant calcification. Age-appropriate mineralization. IMPRESSION: No acute fracture or dislocation within the left tibia and fibula, as detailed above. Reviewed, dictated and finalized at location A.
--- OUTSIDE RECORDS SUMMARY | 2024-12-08 22:42 | XMS_ITS | Clinical Summary ---
Author Organization [facility] Address [address] [place] [id number] Care Team Providers Care Motor Block Mechanic Name Role Phone Ankur Root MD Primary Care Provider Naye Joyner Unavailable Allergies Active Allergy Reactions Criticality Noted Date Comments Hydrocodone Anaphylaxis High Throat is closing and face swells Penicillins Anaphylaxis High Throat closes and rash Medications albuterol HFA (PROVENTIL HFA,VENTOLIN HFA,PROAIR HFA) 90 mcg/actuation inhaler INHALE 2 PUFFS BY MOUTH EVERY 4 HOURS NEEDED FOR SHORTNESS OF BREATH OR WHEEZING 2 Active furosemide (LASIX) 40 mg tablet Take 1 tablet (40 mg total) by mouth 2 (two) times a day 1 tablet 2 Active Additional Information Patient not taking.Reported on 09/01/2024 SUMAtriptan (IMITREX) 100 mg tablet Take 1 tablet (100 mg total) by mouth once as needed for migraine Active montelukast (SINGULAIR) 10 mg tablet Take 1 tablet (10 mg total) by mouth nightly at bedtime 3 Active omeprazole (PriLOSEC) 20 mg capsule Take 1 capsule (20 mg total) by mouth daily 4 Active levothyroxine (SYNTHROID) 137 mcg tablet Take 1 tablet (137 mcg total) by mouth carburetor mechanic before breakfast 30 tablet 6 4 Active cyanocobalamin (Vitamin B-12) 1,000 mcg tablet Take 1 tablet (1,000 mcg total) by mouth daily Active celecoxib (CeleBREX) 200 mg capsule TAKE 1 CAPSULE(200 MG) BY MOUTH TWICE DAILY FOR 14 DAYS 28 capsule 5 Active Additional Information Patient not taking.Reported on 09/01/2024 ergocalciferol (VITAMIN D) 50,000 unit capsuleIndicati ons:Vitamin D deficiency Take 1 capsule (50,000 Units total) by mouth once a week 12 capsule 2 5 Active Active Problems Problem Noted Date Diagnosed Date Slow transit constipation 06/05/2022 Assessment & Plan (06/05/2022 1:03 PM LINE APPLIANCE ASSEMBLER): Celiac panel ordered. But I told her to f/u with PCP/ GI for further evaluation. Class 2 obesity without seri ous comorbidity with body mass index (BMI) of 37.0 to 37.9 in adult 01/31/2021 Assessment & Plan (01/31/2021 2:30 PM CDT): Concern for diabetes. Check A1c with labs. Osteoarthritis of left knee 09/22/2020 Fall 09/22/2020 History of total knee replacement 09/14/2015 Overview (08/09/2016): Status post total right knee replacement Vitamin D deficiency 09/18/2013 Overview (08/08/2016): VITAMIN D DEFICIENCY NOS Assessment & Plan (08/17/2024 11:03 AM CDT): Chronic problem; unknown status. Currently taking ergocalciferol 50,000IU weekly. Had missed 2-3 weeks as she could not get script refilled. Restarted ergocalciferol approx 2 wks ago. Has not had D level drawn since 10/2023. Will update D level today. Verified that she uses [employer]. Aware to check results/results letter in [employer]. Will contact by phone if needed. Assessment & Plan (10/14/2023 1:51 PM CDT): Chronic, stable Update 25 OH vit D Continue ergocalciferol Assessment & Plan (06/05/2022 1:04 PM LINE APPLIANCE ASSEMBLER): Chronic stable problem. Update vitamin D level. Assessment & Plan (09/24/2021 2:52 PM CDT): Chronic problem, update vitamin D level today. Assessment & Plan (01/31/2021 2:09 PM CDT): Chronic problem. Check vitamin D level today. Assessment & Plan (10/04/2019 10:28 AM CDT): Check 25 OH vit D Adjust dose of Ergocalciferol accordingly Assessment & Plan (03/31/2019 9:46 AM LINE APPLIANCE ASSEMBLER): Check 25 OH vit D Adjust dose of Ergocalciferol accordingly Assessment & Plan (07/14/2018 1:17 PM CDT): Check 25 OH vit D Adjust dose of Ergocalciferol accordingly Hypothyroidism 09/18/2013 Overview (08/09/2016): HYPOTHYROIDISM NOS Assessment & Plan (08/17/2024 11:03 AM CDT): Chronic problem. Uncontrolled; TSH suppressed at 0.03 when checked 02/09/24. Had been on levothyroxine 150mcg & was decreased at that time to 137. Has not yet had labs repeated since that time. Will update TFTs today. Verified that she uses [employer]. Aware to check results/results letter in [employer]. Will contact by phone if needed. Assessment & Plan (02/13/2024 4:23 PM CDT): Chronic, uncontrolled Lower levothyroxine to 137 mcg daily Update TSH and free T4 in 3 months Assessment & Plan (10/14/2023 1:51 PM CDT): Chronic, uncontrolled Update TFT Will adjust dose of Levothyroxine if indicated Assessment & Plan (06/05/2022 1:07 PM LINE APPLIANCE ASSEMBLER): Chronic problem, unknown status. Update TFTs and will adjust dose as appropriate. We also discussed T3 which she's interested in trying, but main issue is that it would need to be dosed daily (vs weekly). She has started taking other daily meds like her inhalers, and has a pill box now so wants to try this. Will update labs, if abnormal will adjust T4 first and recheck in 3 months. Assessment & Plan (09/24/2021 2:57 PM CDT): Chronic problem, symptomatic with fatigue although has had other significant issues this spring. She has been taking her LT4 consistently (not missing any doses) and taking it by itself w/o other medications or vitamins. Discussed the need to check labs in 3 months between appointments if dose adjustment is made. Assessment & Plan (01/31/2021 2:30 PM CDT): Chronic problem, symptomatic. Continue on current dose of thyroid replacement hormone pending lab results. Check TSH and FT4 today. She does better taking LT4 once a week as she has difficulty remembering daily dosing. Assessment & Plan (10/04/2019 10:28 AM CDT): Will check TSH and free T4 Will adjust dose of Levothyroxine accordingly . If there is a need to make changes, will recheck levels in 2-3 months. Continue Levothyroxine , 7 pills once a week Assessment & Plan (03/31/2019 9:46 AM LINE APPLIANCE ASSEMBLER): Will check TSH and free T4 Will adjust dose of Levothyroxine accordingly . If there is a need to make changes, will recheck levels in 2-3 months. Instructions to patient on taking medication properly : in the morning, on an empty stomach , 1 h part from food and/or other meds. If any doses are missed, can take 2-3 tab together ,to make up for the missed dose; make sure at the end to the week, 7 tabs have been taken. Assessment & Plan (07/14/2018 1:18 PM CDT): Will check TSH and free T4 Will adjust dose of Levothyroxine accordingly . If there is a need to make changes, will recheck levels in 2-3 months. Instructions to patient on taking medication properly : in the morning, on an empty stomach , 1 h part from food and/or other meds. If any doses are missed, can take 2-3 tab together ,to make up for the missed dose; make sure at the end to the week, 7 tabs have been taken. Assessment & Plan (06/23/2017 12:05 PM LINE APPLIANCE ASSEMBLER): Patient has done very well status post total thyroidectomy. Patient is currently on hormone supplementation directed by her medical funeral service apprentice. Her surgical sites are healing up nicely. Additional wound care instructions were discussed. Patient can follow back up as needed. Assessment & Plan (06/16/2017 10:51 AM LINE APPLIANCE ASSEMBLER): Check TSH, free T4 Adjust dose of Levothyroxine accordingly . Instructions to patient on taking medication properly Recheck levels in 2 m F/u In 4 m Assessment & Plan (05/21/2017 10:31 AM LINE APPLIANCE ASSEMBLER): Check TSH, free T4 Adjust dose of Levothyroxine accordingly . Instructions to patient on taking medication properly Assessment & Plan (11/06/2016 3:32 PM CDT): Check TSH, free T4 Adjust dose of Levothyroxine accordingly . Instructions to patient on taking medication properly History of high risk medication treatment 2011 Overview (08/08/2016): H/O long-term treatment with high-risk medication Hyperlipidemia 02/13/2012 Overview (08/09/2016): Hyperlipidemia Resolved Problems Problem Noted Date Diagnosed Date Resolved Date Non-toxic multinodular goiter 09/18/2013 06/16/2017 Overview (08/09/2016): NONTOX MULTINODUL GOITER Assessment & Plan (06/03/2017 7:44 PM LINE APPLIANCE ASSEMBLER): Based on the history obtained from the patient, including my physical findings and diagnostic testing as well as medical records from her funeral service apprentice patient meets indications to undergo minimally invasive total thyroidectomy with continuous recurrent laryngeal nerve monitoring. A thorough discussion took place today with the patient pertaining to the surgical treatment of thyroid disease. Elaboration on the recurrent laryngeal nerve and parathyroid glands were discussed regarding there anatomical location relationship to the operative site and the potential functional disability that could occur should the structures be injured. Also discussed overnight hospitalization as well as postoperative recovery. All questions were answered to what appeared to be patient's understanding and satisfaction. After the procedure was explained in full the potential risk, complications, benefits and alternatives patient would like to proceed. Patient will be scheduled in a timely fashion. Assessment & Plan (05/21/2017 10:32 AM LINE APPLIANCE ASSEMBLER): Because of compressive symptoms and Goiter enlargement, I have recommended the pt to see Dr Galvin to consider thyroidectomy. She agrees. Assessment & Plan (11/06/2016 4:48 PM CDT): Keep TSH within range . Ultrasound performed ( see report ) Consider surgery , since she is having some compressive symptoms . Surgical History Surgery Date Site/Laterality Comments CARPAL TUNNEL RELEASE Right Carpal tunnel release OTHER SURGICAL HISTORY 05/05/2012 - 05/04/2013 mamogram HYSTERECTOMY 05/05/2012 - 05/04/2013 Hysterectomy KNEE ARTHROPLASTY Right Knee replacement OOPHORECTOMY THYROIDECTOMY Medical History Medical History Date Comments Disorder of thyroid Thyroid dise ase Hx Other Medical goiter Anemia Anemia Depression Depression Hx Other Medical TMJ bilateral Osteoarthritis Osteoarthritis Asthma PONV (postoperative nausea and vomiting) Chronic constipation DVT (deep venous thrombosis) in leg after starting control Edema GERD (gastroesophageal reflux disease) Plaque psoriasis Family History Medical History Relation Name Comments Memory loss Mother Hyperthyroidism Other 1 Family histo ry of Hyperthyroidism; Cancer Other 2 Family history of Cancer; Heart disease Other 3 Family history of Heart disease; Hypertension Other 4 Family history of Hypertension; Lung disease Other 5 Family history of lung disease; Coronary artery disease Other 6 Fami ly history of Coronary artery disease; Relation Name Status Comments Mother Other 1 Other 2 Other 3 Other 4 Other 5 Other 6 Social History Tobacco Use Types Packs/Day Years Used Date Smoking Tobacco: Never Smokeless Tobacco: Never Tobacco Cessation:Counseling Given: Not Answered Alcohol Use Standard Drinks/Week Comments No 0 (1 standard drink = 0.6 oz pur e alcohol) AUDIT-C Answer Date Recorded Q1: How often do you have a drink containing alcohol? Never 02/24/2024 Q2: How many drinks containi ng alcohol do you have on a typical day when you are drinking? Patient does not drink Q3: How often do you have si x or more drinks on one occasion? Never 02/24/2024 PHQ-2 Answer Date Recorded PHQ-2 Total Score (If total score is 3 or more points, staff should administer the PHQ-9) 0 02/13/2024 PHQ-9 Answer Date Recorded PHQ-9 Total Score 0 02/13/2024 Personal Safety Answer Date Recorded Have you ever been in or are you currently in a harmful physical or emotional relationship or is someone making you feel afraid or unsafe? Denies 03/02/2024 Comments No Sex and Gender Information Value Date Recorded Sex Assigned at Not on file Legal Sex Female 10:12 AM LINE APPLIANCE ASSEMBLER Gender Identity Female 11/11/2019 8:33 AM CDT Sexual Orientation Straight 11/11/2019 8: 33 AM CDT Obstetrics History Para Term AB IAB SAB Ectopic Multiple Livin g Live Births 2 2 2 Date Outcome GA Total Labor Labor/2nd/3rd Weight Sex Type Anes PTL Bre A1 A5 Name Clin Term Term Last Filed Vital Signs Vital Sign Reading Time Taken Comments Blood Pressure 134/80 09/01/2024 12:43 PM CDT Pulse 78 09/01/2024 12:43 PM CDT Temperature 36.7 C (98.1 F) 06/29/2024 9:59 AM LINE APPLIANCE ASSEMBLER Respiratory Rate 16 08/17/2024 10:2 2 AM CDT Oxygen Saturation 99% 06/29/2024 9:59 AM LINE APPLIANCE ASSEMBLER Inhaled Oxygen Concentration - - Weight 105.8 kg (233 lb 3.2 oz) 025 12:43 PM CDT Height 175.3 cm (5' 9) 09/01/2024 12:4 3 PM CDT Body Mass Index 34.44 09/01/2024 12:43 PM CDT Plan of Treatment Health Maintenance Due Date Last Done Comments DTaP/Tdap/Td Vaccine (1 - Tdap) 1973 Hepatitis B Screening 1980 Regular Well Visit/Exam 18-64 1980 Zoster Vaccine (1 of 2) 2012 Breast Cancer Screening-Mammogram 10/25/2018 10/25/2017, 12/07/2012 Colon Cancer Screening-Colonoscopy 12/18/2022 12/18/2012 Influenza Vaccine (#1) 2025 Depression Screening 02/12/2025 02/13/2024, 02/13/2024, 10/14/2023, Additional history exists Colon Cancer Screening-CT Colonography Discontinued 12/18/2012 Colon Cancer Screening-DNA Stool Discontinued 12/18/2012 Colon Cancer Screening-FIT Discontinued 12/18/2012 Colon Cancer Screening-Sigmoidoscopy Discontinued 12/18/2012 Hepatitis C Screening Completed 09/12/2015 Pneumococcal vaccine <65 Aged Out No longer eligible based on patient's age to complete this topic Medical Devices Implanted Type Area Pipe Coverer And Insulator Device Identifier Shelf Expiration Date Model / Serial / Lot [employer] Attune Fb Tib Base Sz 6 Por [id number] - [id number] Implanted:Qty: 1 on 03/02/2024 by Vadim Segovia MD at [facility] Left: Knee [employer] [id number] 09/01/2033 [id number] / / [id number] [employer] Attune Cruciate Retain Cementless Knee Left 6 Component Femoral [id number] - [id number] Implanted:Qty: 1 on 03/02/2024 by Vadim Segovia MD at [facility] Left: Knee [employer] [id number] 12/02/2033 [id number] / / [id number] [employer] Insert Tibial Knee Fixed Lm Posterior Stabilized Attune 5mm Size 6 Polyethylene [id number] - [id number] Implanted:Qty: 1 on 03/02/2024 by Vadim Segovia MD at [facility] Left: Knee [employer] [id number] 12/02/2030 [id number] / / [id number] Procedures Procedure Name Priority Date/Time Associated Diagnosis Comments SCREENING MAMMOGRAM BILATERAL W BYRON Schedule Routine, Read Routine (OP Routine) 10/25/2017 12:55 PM CDT Encounter for screening mammogram for malignant neoplasm of breast SERUM HEPATITIS C AB Routine 09/12/2015 8:58 AM CDT COLONOSCOPY 12/18/2012 12:00 AM CDT from Last 3 Months or Most Recently Relevant to Health Maintenance Results * Screening Mammogram Bilateral W [place] (10/25/2017 12:55 PM CDT) Anatomical Region Laterality Modality Breast Bilateral Mammography 10/27/2017 7:19 AM CDT Impressions 10/27/2017 7:23 AM CDT 1. NO FINDINGS SUSPICIOUS FOR MALIGNANCY. 2. ANNUAL FOLLOW-UP RECOMMENDED. BI-RADS 1--negative Electronically signed by: Gilles Taylor Jr., M.D. Narrative 10/27/2017 7:23 AM CDT SCREENING MAMMOGRAM BILATERAL W [place] HISTORY: Encounter for screening mammogram for malignant neoplasm of breast. TECHNIQUE: 2 views of each breast were obtained with bilateral breast tomosynthesis. COMPARISON: 12/07/2012, 12/30/2005, 12/21/2004. FINDINGS: The breasts are heterogeneously dense. No dominant mass, skin thickening, nipple retraction or suspicious cluster of microcalcifications is seen. Digital technology was employed plus computer aided detection software (R2) was utilized in interpretation of these images. This facility utilizes a reminder system to notify patient's of yearly mammograms. us Donaldo Blue MD IMG MAMMO PROCEDURES Marlyn l Result * Serum Hepatitis C ab (09/12/2015 8:58 AM CDT) Pathologist [facility] HCV ab Negative Negative HISTORICAL RESULTS Comment:Test performed at [facility], [address] [place] [address], [place]., [address] Serum 09/12/2015 8:58 AM CDT us Kavon Crawley MD LAB BLOOD ORDERABLES Final Re sult HISTORICAL RESULTS * COLONOSCOPY (12/18/2012 12:00 AM CDT) Anatomical Region Laterality Modality Other Narrative 12/18/2012 12:00 AM CDT Ordered by an unspecified provider. Procedure Note Provider, Berenice, - 12/18/2012 12:00 AM CDT PROCEDURE REPORT Patient: SAMANTHA EVANS Account: [id number] Room No: : 1960 Patient Type: SDS Attend.: Edwin Sam M.D. Admit Date: 12/18/2012 Dict.: Edwin Sam M.D. Disch. Date: 12/18/2012 NAME OF PROCEDURE: COLONOSCOPY DATE SEEN: December 18, 2012 REFERRED BY: Dr. Sang Olson. PREVIOUS PROCEDURE: None. X-RAYS: None. HISTORY AND PHYSICAL EXAM: The patient is a 52-year-old white femalereferred now for screening colonoscopy. She denies any specific complaints andthere is only a remote family history in a maternal aunt. Physical exam today is that of a well-developed, well-nourished whitefemale in no acute distress. She is nonicteric. Her lungs were clear. Heart was regular. GI was soft and supple. Extremities showed no calf pain, cords,or edema. PREPROCEDURE DIAGNOSIS: Screening colonoscopy in a 52-year-old female. PHYSICIAN: Edwin Sam M.D. INSTRUMENT USED: Olympus videoendoscope. MEDICATIONS: Per Anesthesia. FINDINGS: The colonoscope was introduced to the rectum left lateralposition, passed to the cecum. The patient tolerated the procedure well. Therewere no complications. On withdrawal of the colonoscope, the mucosa appearednormal with normal vascular pattern. In the cecum adjacent to the appendicealorifice was a rounded 7 to 8 mm polyp. This was picked up, hot biopsied, and destroyed. The remainder of the cecum, right, transverse, and left colonswere normal. In the rectosigmoid a second polyp was found. This also waspicked up, hot biopsied and removed. The remainder of the rectosigmoid andrectum was normal. Retroflex view of internal anal area showed small to moderateinternal hemorrhoidal tissue. Perianal exam showed no perianal disease, norectal masses. COMPLICATIONS: None. POSTPROCEDURE DIAGNOSES 1. Two colonic polyps, one in the cecum and one in the rectosigmoid.Both polyps were hot biopsied and removed. Polyps were sent forpathology. 2. Otherwise normal screening colonoscopy to cecum with withdrawal timeof 9 minutes and 40 seconds. Preparation was good. POSTPROCEDURE ORDERS 1. Postsedation instructions. 2. High fiber diet. 3. Check pathology. 4. Repeat colon in five years pending path report. 5. Follow up with Dr. Sang Olson. 6. Followup in my office will otherwise be on a p.r.n. basis. Edwin Sam M.D. RUTH/anjana TD: 12/18/2012 21:44 CC: Dr. Sang Olson Authenticated by Edwin Sam MD On 12/28/2012 10:19:01 AM Historical Provider ENDOSCOPY PROCEDURES Marlyn l Result from Last 3 Months or Most Recently Relevant to Health Maintenance Insurance [facility] [employer] COMPENSATION GENERIC Advance Directives For more information, please contact: [phone] * Full Code (Latest Code Status on File) Date Activated Date Inactivated Comments 06/10/2017 1:24 PM 06/11/2017 11:29 AM Care Teams Motor Block Mechanic Relationship Specialty Start Date End Date Ankur Root MD [address] [facility] [address] [facility] [address] [place] [address] PCP - General 08/02/16 Naye Joyner PA [address] [place] [address] [address] [place] [address] Physician Used Car Salesperson Orthopedic Surgery 03/02/24
[2024-12-08 22:43] VITALS: BP 147/81; PULSE 72; RESP 14; TEMP 36.9; O2SAT 100
[2024-12-09 01:16] VITALS: BP 132/89; PULSE 2; RESP 16; O2SAT 91
--- OUTSIDE RECORDS SUMMARY | 2024-12-09 01:26 | XMS_ITS | Clinical Summary ---
Author Organization [facility] Address [address] [place] [id number] Care Team Providers Care Oliver Filter Operator Name Role Phone Ankur Root MD Primary Care Provider Naye Joyner Unavailable [phone] Allergies Active Allergy Reactions Criticality Noted Date [...] 1 tablet (137 mcg total) by mouth gage designer before breakfast 30 tablet 6 4 Active [...] 06/05/2022 Assessment & Plan (06/05/2022 1:03 PM ASPHALT LAYER): Celiac panel ordered. But I told her [...] D level today. Verified that she uses [email or web address]. Aware to check results/results letter in [employer]. Will contact by phone if needed. Assessment & Plan (10/14/2023 1:51 PM CDT): Chronic, stable Update 25 OH vit D Continue ergocalciferol Assessment & Plan (06/05/2022 1:04 PM ASPHALT LAYER): Chronic stable problem. Update vitamin D level. Assessment & Plan (09/24/2021 2:52 PM CDT): Chronic problem, update vitamin D level today. Assessment & Plan (01/31/2021 2:09 PM CDT): Chronic problem. Check vitamin D level today. Assessment & Plan (10/04/2019 10:28 AM CDT): Check 25 OH vit D Adjust dose of Ergocalciferol accordingly Assessment & Plan (03/31/2019 9:46 AM ASPHALT LAYER): Check 25 OH vit D Adjust dose [...] update TFTs today. Verified that she uses [employer]. Aware to check results/results letter in [employer]. Will contact by phone if needed. Assessment & Plan (02/13/2024 4:23 PM CDT): Chronic, uncontrolled Lower levothyroxine to 137 mcg daily Update TSH and free T4 in 3 months Assessment & Plan (10/14/2023 1:51 PM CDT): Chronic, uncontrolled Update TFT Will adjust dose of Levothyroxine if indicated Assessment & Plan (06/05/2022 1:07 PM ASPHALT LAYER): Chronic problem, unknown status. Update TFTs and [...] week Assessment & Plan (03/31/2019 9:46 AM ASPH[facility] LAYER): Will check TSH and free T4 Will [...] taken. Assessment & Plan (06/23/2017 12:05 PM ASPHALT LAYER): Patient has done very well status post total thyroidectomy. Patient is currently on hormone supplementation directed by her medical aviation operations specialist. Her surgical sites are healing up nicely. Additional wound care instructions were discussed. Patient can follow back up as needed. Assessment & Plan (06/16/2017 10:51 AM ASPHALT LAYER): Check TSH, free T4 Adjust dose of Levothyroxine accordingly . Instructions to patient on taking medication properly Recheck levels in 2 m F/u In 4 m Assessment & Plan (05/21/2017 10:31 AM ASPHALT LAYER): Check TSH, free T4 Adjust dose of [...] GOITER Assessment & Plan (06/03/2017 7:44 PM [facility]AYER): Based on the history obtained from the patient, including my physical findings and diagnostic testing as well as medical records from her aviation operations specialist patient meets indications to undergo minimally invasive [...] fashion. Assessment & Plan (05/21/2017 10:32 AM ASP[facility] LAYER): Because of compressive symptoms and Goiter enlargement, [...] on file Legal Sex Female 10:12 AM [facility] LAYER Gender Identity Female 11/11/2019 8:33 AM CDT [...] 36.7 C (98.1 F) 06/29/2024 9:59 AM ASPHALT LAYER Respiratory Rate 16 08/17/2024 10:2 2 AM CDT Oxygen Saturation 99% 06/29/2024 9:59 AM ASPHALT LAYER Inhaled Oxygen Concentration - - Weight 105.8 [...] this topic Medical Devices Implanted Type Area Lead Manufacturing Technician Device Identifier Shelf Expiration Date Model / Serial / Lot [employer] Attune Fb Tib Base Sz 6 Por [id number] - [id number] Implanted:Qty: 1 on 03/02/2024 by Vadim Segovia MD at [facility] Left: Knee [employer] [id number] 09/01/2033 [id number] / / [id number] [employer] Attune Cruciate Retain Cementless Knee Left 6 Component Femoral [id number] - [id number] Implanted:Qty: 1 on 03/02/2024 by Vadim Segovia MD at [facility] Left: Knee [employer] [id number] 12/02/2033 [id number] / / [id number] [employer] Insert Tibial Knee Fixed Lm Posterior Stabilized Attune 5mm Size 6 Polyethylene [id number] - [id number] Implanted:Qty: 1 on 03/02/2024 by Vadim Segovia MD at [facility] Left: Knee [employer] [id number] 12/02/2030 [id number] / / [id number] Procedures Procedure Name Priority Date/Time Associated Diagnosis [...] C ab (09/12/2015 8:58 AM CDT) Pathologist [facility] HCV ab Negative Negative HISTORICAL RESULTS Comment:Test performed at [facility], [address] [place] [address], [place]., [address] Serum 09/12/2015 8:58 AM CDT us Kavon Crawley MD LAB BLOOD ORDERABLES Final Re sult HISTORICAL RESULTS * COLONOSCOPY (12/18/2012 12:00 AM CDT) Anatomical Region Laterality Modality Other Narrative 12/18/2012 12:00 AM CDT Ordered by an unspecified provider. Procedure Note Provider, Berenice, - 12/18/2012 12:00 AM CDT PROCEDURE REPORT Patient: SAMANTHA EVANS Account: [id number] Room No: : 1960 Patient Type: SDS [...] Most Recently Relevant to Health Maintenance Insurance [facility] [employer]ENSATION GENERIC Advance Directives For more information, please contact: [phone] * Full Code (Latest Code Status on File) Date Activated Date Inactivated Comments 06/10/2017 1:24 PM 06/11/2017 11:29 AM Care Teams Oliver Filter Operator Relationship Specialty Start Date End Date Ankur Root MD [address] [facility] [address] [place] [address] PCP - General 08/02/16 Naye Joyner PA [address] [place] [address] [address] [place] [address] Physician Mineral Economist Orthopedic Surgery 03/02/24
--- NOTE | 2024-12-09 02:37 | ED_ITS ---
HPI - Extremity Problem General Chief complaint: Extremity Problem,Nontraumatic Stated complaint: leg pain Time Seen by Provider: 12/09/24 01:16 History of Present Illness HPI Narrative: Patient is a 64-year-old female who presents to the ER with left lower quadrant pain and swelling. She reports she woke up morning and had pain behind her knee. Patient reports she noticed a large, bulging vein behind her knee also. She reports she has had ultrasounds of her legs in the past but has never been diagnosed with a blood clot or blood thinner. Patient endorses a history of Kristyn's and Graves disease, left knee surgery, and pneumonia. She denies any chest pain, shortness of breath, or recent fevers. Patient endorses recent GERD and hot flashes. Related Data Home Medications ?Medication ?Instructions ?Recorded ?Confirmed ?Last Taken ?Type sumatriptan succinate 100 mg tablet See Rx Instructions PO .COMPLEX 03/07/23 10/07/24 Unknown History PRN Migraine Headache levothyroxine 137 mcg tablet 137 mcg PO DAILY 08/17/24 10/07/24 Unknown History (Synthroid) Allergies Allergy/AdvReac Type Severity Reaction Status Date / Time hydrocodone Allergy Severe Anaphylactic Verified 12/08/24 23:21 Shock oxycodone Allergy Severe Anaphylactic Verified 12/08/24 23:21 Shock Penicillins Allergy Severe Anaphylactic Verified 12/08/24 23:21 Shock Review of Systems Review of Systems: All systems reviewed & are unremarkable except as noted in HPI and below PMFSH Past Medical History Medical History Body mass index (BMI) of 38.0 to 38.9 in adult Nonerosive esophageal reflux disease Asthma Family history of Alzheimer's disease Depression Thoracic scoliosis Left wrist pain Family History Family History Mother Family history of Alzheimer's disease Social History Social History Smoking status: Never smoker Second hand tobacco smoke exposure: Yes Alcohol intake: never Substance use: never Living arrangements: with family Occupation/Education: occupation Gender identity (if verbalized by the patient): Female Sexual Orientation (if Verbalized by the Patient): Straight or Heterosexual Spiritual care concerns: No Exam Narrative: GENERAL: Well appearing, well-nourished, non-toxic, in no acute distress. HEAD: Normocephalic, atraumatic. NECK: Supple. No adenopathy, no masses. RESPIRATORY: Airway patent, respirations nonlabored. Clear to auscultation bilaterally, no rales, rhonchi, wheezing. CARDIOVASCULAR: Regular rate and rhythm without murmurs, rubs, or gallops. Peripheral pulses 2+ and equal bilaterally. Negative Homans test. Left lower extremity mildly swollen. No palpable Valentin's cyst. No visible bulging veins. ABDOMINAL: Soft, nontender, nondistended, no hepatosplenomegaly. Normoactive BS. MUSCULOSKELETAL: Moves all extremities. Strength/ROM intact without gross deformities. SKIN: Warm, dry, normal color. No rashes. NEURO: A&O X3. Speech clear. Cranial nerves II-XII intact. No ataxic movements. PSYCHIATRIC: Appropriate mood and affect. Normal interaction. Course Vital Signs Vital signs: Vital Signs Temperature 36.9 C 12/08/24 22:43 Pulse Rate 72 12/08/24 22:43 Respiratory Rate 14 12/08/24 22:43 Blood Pressure 147/81 H 12/08/24 22:43 Pulse Oximetry 100 12/08/24 22:43 Oxygen Delivery Room Air 12/08/24 22:43 Temperature 36.9 C 12/08/24 22:43 Pulse Rate 2 L 12/09/24 01:16 Respiratory Rate 16 12/09/24 01:16 Blood Pressure 132/89 12/09/24 01:16 Pulse Oximetry 91 12/09/24 01:16 Oxygen Delivery Room Air 12/08/24 22:43 MDM - Extremity (Nontraumatic) MDM Narrative Medical decision making narrative: Patient is a 64-year-old female who presents to the ER with left lower quadrant pain and swelling. She reports she woke up morning and had pain behind her knee. Patient reports she noticed a large, bulging vein behind her knee also. She reports she has had ultrasounds of her legs in the past but has never been diagnosed with a blood clot or blood thinner. Patient endorses a history of Kristyn's and Graves disease, left knee surgery, and pneumonia. She denies any chest pain, shortness of breath, or recent fevers. Patient endorses recent GERD and hot flashes. Labs Ordered: None necessary Imaging Ordered: Ultrasound left lower extremity, left tib-fib x-ray Medications Ordered: None necessary Results: Patient's venous ultrasound did not indicate a she DVT. Her left tib- fib x-ray was negative for any acute fractures or significant tissue swelling. Diagnosis: Left lower extremity swelling Patient Education/Shared MDM: Results of imaging shared with patient. Her left lower extremity will be wrapped with an Jean-Paul wrap for compression (pt declined). Patient strongly advised to maintain hydration status upon discharge and follow- up with her PCP as soon as possible. She will not be discharged home with any new prescriptions (pt reports she already has Lidocaine patches at home). Strict return precautions provided. Patient verbalized understanding and is in agreement with plan. Vital signs stable at time of discharge. All questions answered. Differential Diagnosis Differential diagnosis: Likely cellulitis, lower extremity edema and deep vein thrombosis of lower extremity Discharge Plan Discharge Clinical Impression: Lower extremity edema Patient Disposition: Home Condition: Stable Instructions: Antibiotic Form, Leg Edema (ED) Additional Instructions: Please return to the ER with any worsening symptoms. Follow-up with primary care provider as soon as possible. Take all medications as prescribed, including regularly scheduled medications. You may use Lidocaine patches, Tylenol, an Jean-Paul wrap, and ice for pain control. Patient Language: Kosovan Prescriptions: No Action sumatriptan succinate 100 mg tablet See Rx Instructions PO .COMPLEX PRN (Reason: Migraine Headache) Rx Instructions: take 1 tab at onset of headache; if no relief, may repeat 1 tab after at least 2 hrs; max = 2 tabs/24 hrs orally PRN; ergocalciferol (vitamin D2) 1,250 mcg (50,000 unit) capsule 1,250 mcg PO WEEKLY Qty: 12 3RF albuterol sulfate [ProAir HFA] 90 mcg/actuation HFA aerosol inhaler 2 puff inhalation Q4H PRN (Reason: shortness of breath or wheezing) Qty: 8.5 2RF budesonide-formoterol 160-4.5 mcg/actuation HFA aerosol inhaler See Rx Instructions .ROUTE .COMPLEX Qty: 10.2 5RF Dose Instruction: INHALE 2 PUFFS BY MOUTH EVERY 12 HOURS; RINSE AND SPIT Rx Instructions: INHALE 2 PUFFS BY MOUTH EVERY 12 HOURS; RINSE AND SPIT montelukast 10 mg tablet 10 mg PO QHS Qty: 90 1RF levothyroxine [Synthroid] 137 mcg tablet 137 mcg PO DAILY meloxicam 7.5 mg tablet 7.5 mg PO DAILY Qty: 90 1RF Follow-up/Referrals: Ankur Root MD [Primary Care Provider] - Time of Disposition: 02:48
== END 2024-12-09 02:53 | disposition home or self-care (01) ==
PROVIDERS: Emergency Provider Registered Nurse; PCP Family Medicine
DX: R60.0 Localized edema (principal); E06.3 Autoimmune thyroiditis; J45.909 Unspecified asthma, uncomplicated; F32.A Depression, unspecified; Z87.01 Personal history of pneumonia (recurrent); Z77.22 Contact with and (suspected) exposure to environmental tobacco smoke (acute) (chronic); Z79.899 Other long term (current) drug therapy
CPT/HCPCS: 73590; 93971; 99284